=== PATIENT | male | born 1980 | race Asian ===

== ENCOUNTER 2017-10-25 14:20 | Emergency (ER) | payer BC ==
--- NOTE | 2017-10-25 14:42 | ER Document Report ---
ED Medical Screen (RME) - General Chief Complaint: Neck Pain >24hrs old Stated Complaint: NECK SWELLING, PAIN Time Seen by Provider: 10/25/17 14:38 Mode of Arrival: Ambulatory Information source: Patient TRAVEL OUTSIDE OF THE [place] IN LAST 30 DAYS: No - HPI Patient complains to provider of: neck pain, swelling Onset: Other - pt. has had swollen area in R neck for the past 3 days -- thinks it may be a swollen lymph node. Has had recentt URI - Related Data Allergies/Adverse Reactions: No Known Allergies Allergy (Verified 04/01/15 16:43) Past Medical History - Social History Frequency of alcohol use: Social - Past Medical History Cardiac Medical History: Reports: Hx Hypertension Pulmonary Medical History: Reports: Hx Bronchitis, Hx Pneumonia Renal/ Medical History: Denies: Hx Peritoneal Dialysis - Immunizations Hx Diphtheria, Pertussis, Tetanus Vaccination: No Physical Exam - Vital signs Vitals: Temp Pulse Resp BP Pulse Ox 98.9 F 125 H 16 159/97 H 97 10/25/17 14:27 10/25/17 14:10/25/17 14:27 10/25/17 14:27 10/25/17 14:27 Course - Vital Signs Vital signs: Temp Pulse Resp BP Pulse Ox 98.9 F 125 H 16 159/97 H 97 10/25/17 14:27 10/25/17 14:27 10/25/17 14:27 10/25/17 14:27 10/25/17 14:27
[2017-10-25 15:29] LABS: ABSOLUTE BASOPHILS # (AUTO) 0.1 10^3/uL (0.0-0.2); ABSOLUTE EOSINOPHILS # (AUTO) 0.1 10^3/uL (0.0-0.6); ABSOLUTE LYMPHOCYTES (AUTO) 0.9 10^3/uL (0.5-4.7); ABSOLUTE MONOCYTES (AUTO) 1.1 10^3/uL (0.1-1.4); ABSOLUTE NEUT (AUTO) 8.6 10^3/uL (1.7-8.2); BASOPHILS % (AUTO) 0.6 % (0-2); EOSINOPHILS % (AUTO) 0.5 % (0-6); HEMATOCRIT 50.5 % (37.9-51.0); HEMOGLOBIN 18.4 g/dL (13.5-17.0); LYMPHOCYTES % (AUTO) 8.2 % (13-45); MEAN CORPUSCULAR HEMOGLOBIN 35.6 pg (27.0-33.4); MEAN CORPUSCULAR HGB CONC 36.5 g/dL (32.0-36.0); MEAN CORPUSCULAR VOLUME 98 fl (80-97); MONOCYTES % (AUTO) 9.9 % (3-13); PLATELET COUNT 229 10^3/uL (150-450); RED BLOOD COUNT 5.18 10^6/uL (4.35-5.55); RED CELL DISTRIBUTION WIDTH 12.8 % (11.5-14.0); SEGMENTED NEUTROPHILS % (AUTO) 80.8 % (42-78); TOTAL CELLS COUNTED % (AUTO) 100 %; WHITE BLOOD COUNT 10.7 10^3/uL (4.0-10.5)
[2017-10-25 15:48] LABS: ALANINE AMINOTRANSFERASE 94 U/L (21-72); ALBUMIN 4.8 g/dL (3.5-5.0); ALKALINE PHOSPHATASE 77 U/L (38-126); ANION GAP 16 (5-19); ASPARTATE AMINO TRANSFERASE 40 U/L (17-59); BILIRUBIN,DIRECT 0.4 mg/dL (0.0-0.4); BILIRUBIN,TOTAL 0.8 mg/dL (0.2-1.3); BLOOD UREA NITROGEN 8 mg/dL (7-20); CALCIUM 9.6 mg/dL (8.4-10.2); CARBON DIOXIDE 21 mmol/L (22-30); CHLORIDE 103 mmol/L (98-107); GLUCOSE 121 mg/dL (75-110); POTASSIUM 4.2 mmol/L (3.6-5.0); SODIUM 140.2 mmol/L (137-145)
[2017-10-25] MEDS ORDERED: OXYCODONE-ACETAMINOPHEN 5-325 MG TABLET PO ONE (16:08)
--- NOTE | 2017-10-25 17:18 | RADIOLOGY REPORT (SQ) ---
EXAM DESCRIPTION: CT SOFT TISSUE NECK WITH COMPLETED DATE/TIME: 10/25/2017 4:37 pm REASON FOR STUDY: swelling to right mandible area, tender lymph node COMPARISON: None. TECHNIQUE: Post IV contrasted scanning from skull base through lung apices with review of bone, soft tissue and lung windows. Reconstructed coronal and sagittal MPR images reviewed. All images stored on PACS. All CT scanners at this facility use dose modulation, iterative reconstruction, and/or weight based d osing when appropriate to reduce radiation dose to as low as reasonably achievable (ALARA). [facility]: Dose Right [facility]: CareDose [facility]: Dose Right [facility]: Teradose 4D [facility]: [employer] CONTRAST TYPE AND DOSE: contrast/concentration: Isovue 370.00 mg/ml; Total Contrast Delivered: 75.0 ml; Total Saline Delivered: 55.0 ml RENAL FUNCTION: Creatinine 0.5 RADIATION DOSE: CT Rad equipment meets quality standard of care and radiation dose reduction techniq ues were employed. CTDIvol: 16.3 mGy. DLP: 490 mGy-cm. . LIMITATIONS: None. FINDINGS: The right submandibular gland is diffusely enlarged and has surrounding inflammatory hammer e in the adjacent fat. This measures 4 x 3 cm in size. No submandibular duct stones are identified. Findings likely represent sialadenitis. Tumor could not entirely be excluded. There is an adjacent right jugulodigastric lymph node on coronal image 24, 2 x 1.5 cm in size likely reactive. Just to the right of midline along the ventral edge of the right thyroid cartilage, a 2.4 x [address] is present likely a thyroglossal duct cyst. This has a tail extending up to the hyoid bone on sag ittal image 27. There is minimal hyperdense thyroid tissue in the wall of the cyst on axial image 70 . SKULL BASE: Inferior brain parenchyma, skullbase unremarkable. MAJOR SALIVARY GLANDS: Right submandibular gland diffusely enlarged with surrounding reactive inflamm atory change likely from sialadenitis. Adjacent enlarged right jugulodigastric lymph node. Remainde r of the major salivary glands are otherwise unremarkable. LYMPHADENOPATHY: Enlarged right jugulodigastric lymph node. No diffuse cervical adenopathy MUCOSAL MASSES OR ASYMMETRY: No mucosal masses or asymmetry. LARYNX/CORDS: No abnormal findings. VASCULAR STRUCTURES: The major vessels are patent. LUNG APICES: Clear. BONES: Intact. THYROID: Normal size. No masses. PARANASAL SINUSES: Clear. OTHER: No other significant finding. 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
--- NOTE | 2017-10-25 17:51 | ER Document Report ---
ED General - General Chief Complaint: Neck Pain >24hrs old Stated Complaint: NECK SWELLING, PAIN Time Seen by Provider: 10/25/17 14:38 Mode of Arrival: Ambulatory Information source: Patient Notes: Patient is a 37-year-old male who presents to the ER today for swelling to the right lower jaw and a painful lymph node to the right of the neck. Patient states this is been going on for approximately 3 days. He denies any injury, fever, chills, history of this, drainage from anywhere, mouth pain TRAVEL OUTSIDE OF THE [place] IN LAST 30 DAYS: No - Related Data Allergies/Adverse Reactions: No Known Allergies Allergy (Verified 04/01/15 16:43) Past Medical History - General Information source: Patient - Social History Smoking Status: Current Every Day Smoker Frequency of alcohol use: Social Family History: None Patient has suicidal ideation: No Patient has homicidal ideation: No - Past Medical History Cardiac Medical History: Reports: Hx Hypertension Pulmonary Medical History: Reports: Hx Bronchitis, Hx Pneumonia Renal/ Medical History: Denies: Hx Peritoneal Dialysis - Immunizations Hx Diphtheria, Pertussis, Tetanus Vaccination: No Review of Systems - Review of Systems Constitutional: No symptoms reported EENT: See HPI Cardiovascular: No symptoms reported Respiratory: No symptoms reported Gastrointestinal: No symptoms reported Genitourinary: No symptoms reported Male Genitourinary: No symptoms reported Musculoskeletal: No symptoms reported Skin: No symptoms reported Hematologic/Lymphatic: No symptoms reported Neurological/Psychological: No symptoms reported Physical Exam - Vital signs Vitals: Temp Pulse Resp BP Pulse Ox 98.9 F 125 H 16 159/97 H 97 10/25/17 14:27 10/25/17 14:27 10/25/17 14:27 10/25/17 14:27 10/25/17 14:27 - Notes Notes: PHYSICAL EXAMINATION: GENERAL: Well-appearing and in no acute distress. HEAD: swelling to right lower mandible, Atraumatic, normocephalic. EYES: Pupils equal round and reactive to light, extraocular movements intact, sclera anicteric, conjunctiva are normal. NECK: Normal range of motion, supple with bilateral cervical lymphadenopathy, right tender LUNGS: CTAB and equal. No wheezes rales or rhonchi. HEART: Regular rate and rhythm without murmurs EXTREMITIES: Normal range of motion, no pitting edema. No cyanosis. NEUROLOGICAL: Cranial nerves grossly intact. Normal sensory/motor exams. PSYCH: Normal mood, normal affect. SKIN: Warm, Dry, normal turgor, no rashes or lesions noted Course - Re-evaluation Re-evalutation: 10/26/17 12:45 Patient is a mildly elevated white blood cell count 10.7, CAT scan of the soft tissues of the neck with IV contrast reports an enlarged submandibular gland without evidence of any stones, most consistent with sialoadenitis. Patient will be started on Keflex and advised to suck on lemon drops. Patient is afebrile here with normal vital signs. - Vital Signs Vital signs: Temp Pulse Resp BP Pulse Ox 98.9 F 113 H 20 151/94 H 97 10/25/17 18:01 10/25/17 18:01 10/25/17 18:01 10/25/17 18:01 10/25/17 18:01 - Laboratory Result Diagrams: 10/25/17 14:59 10/25/17 14:59 Laboratory results interpreted by me: 10/25/17 10/25/17 14:59 14:59 WBC 10.7 H Hgb 18.4 H MCV 98 H MCH 35.6 H MCHC 36.5 H Seg Neutrophils % 80.8 H Lymphocytes % 8.2 L Absolute Neutrophils 8.6 H Carbon Dioxide 21 L Glucose 121 H ALT 94 H Discharge - Discharge Clinical Impression: Sialadenitis Condition: Stable Disposition: HOME, SELF-CARE Additional Instructions: Return immediately for any new or worsening symptoms. Follow up with primary care provider, call tomorrow to make followup appointment. Please get some lemon cough drops/ lemon drops and suck on them, they'll help! Prescriptions: Cephalexin Monohydrate [Keflex 500 mg Capsule] 500 mg PO Q6H 10 Days capsule Forms: Return to Work
[2017-10-25] MEDS ORDERED: HYDROCODONE/ACETAMINOPHEN 5-325 MG (6 TAB/ER DISP) PO PRN (17:59)
[2017-10-25 18:06] VITALS: BP 151/94
== END 2017-10-25 18:06 | disposition home or self-care (01) ==
LOC: ER 14:20
DX: K11.20 Sialoadenitis, unspecified (principal); I10 Essential (primary) hypertension; F17.200 Nicotine dependence, unspecified, uncomplicated
CPT/HCPCS: 36415; 70491; 80053; 85025; 99284

== ENCOUNTER 2018-06-22 16:14 | Emergency (ER) | payer BC ==
[2018-06-22 16:49] LABS: ABSOLUTE LYMPHOCYTES (AUTO) 0.9 10^3/uL (0.5-4.7); ABSOLUTE MONOCYTES (AUTO) 1.1 10^3/uL (0.1-1.4); ABSOLUTE NEUT (AUTO) 6.7 10^3/uL (1.7-8.2); BASOPHILS % (AUTO) 0.5 % (0-2); EOSINOPHILS % (AUTO) 0.3 % (0-6); HEMATOCRIT 48.9 % (37.9-51.0); HEMOGLOBIN 17.5 g/dL (13.5-17.0); LYMPHOCYTES % (AUTO) 10.5 % (13-45); MEAN CORPUSCULAR HEMOGLOBIN 35.2 pg (27.0-33.4); MEAN CORPUSCULAR HGB CONC 35.8 g/dL (32.0-36.0); MEAN CORPUSCULAR VOLUME 98 fl (80-97); MONOCYTES % (AUTO) 12.1 % (3-13); PLATELET COUNT 172 10^3/uL (150-450); RED BLOOD COUNT 4.97 10^6/uL (4.35-5.55); RED CELL DISTRIBUTION WIDTH 13.1 % (11.5-14.0); SEGMENTED NEUTROPHILS % (AUTO) 76.6 % (42-78); TOTAL CELLS COUNTED % (AUTO) 100 %; WHITE BLOOD COUNT 8.7 10^3/uL (4.0-10.5)
[2018-06-22 16:59] LABS: ALANINE AMINOTRANSFERASE 190 U/L (21-72); ALKALINE PHOSPHATASE 110 U/L (38-126); ASPARTATE AMINO TRANSFERASE 179 U/L (17-59); BILIRUBIN,DIRECT 0.6 mg/dL (0.0-0.4); BILIRUBIN,TOTAL 2.1 mg/dL (0.2-1.3); BLOOD UREA NITROGEN 7 mg/dL (7-20); GLUCOSE 149 mg/dL (75-110); POTASSIUM 3.9 mmol/L (3.6-5.0); TOTAL PROTEIN 7.9 g/dL (6.3-8.2)
[2018-06-22 17:04] LABS: CARBON DIOXIDE 16 mmol/L (22-30); CHLORIDE 96 mmol/L (98-107)
[2018-06-22 17:05] LABS: ANION GAP 21 (5-19)
[2018-06-22 17:11] LABS: APPEARANCE,URINE CLOUDY; BILIRUBIN,URINE NEGATIVE (NEGATIVE); COLOR,URINE YELLOW; GLUCOSE, URINE NEGATIVE (NEGATIVE); KETONES,URINE 20 mg/dL (NEGATIVE); LEUKOCYTE ESTERASE,URINE NEGATIVE (NEGATIVE); NITRITE,URINE NEGATIVE (NEGATIVE); PROTEIN,URINE >=500 mg/dL (NEGATIVE); URINE SPECIFIC GRAVITY 1.012
[2018-06-22] MEDS ORDERED: NORMAL SALINE 1000 ML 1,000 ML IV ONE (18:47)
[2018-06-22 20:12] LABS: EOSINOPHILS % (AUTO) 0.1 % (0-6); TOTAL CELLS COUNTED % (AUTO) 100 %; WHITE BLOOD COUNT 9.1 10^3/uL (4.0-10.5)
[2018-06-22 20:32] LABS: ABSOLUTE LYMPHOCYTES (AUTO) 0.7 10^3/uL (0.5-4.7); ABSOLUTE NEUT (AUTO) 7.3 10^3/uL (1.7-8.2); BASOPHILS % (AUTO) 0.4 % (0-2); HEMATOCRIT 44.7 % (37.9-51.0); HEMOGLOBIN 16.1 g/dL (13.5-17.0); LYMPHOCYTES % (AUTO) 7.8 % (13-45); MEAN CORPUSCULAR HEMOGLOBIN 35.7 pg (27.0-33.4); MEAN CORPUSCULAR VOLUME 99 fl (80-97); PLATELET COUNT 148 10^3/uL (150-450); RED BLOOD COUNT 4.51 10^6/uL (4.35-5.55); RED CELL DISTRIBUTION WIDTH 13.1 % (11.5-14.0); SEGMENTED NEUTROPHILS % (AUTO) 80.7 % (42-78)
[2018-06-22 20:43] LABS: ALANINE AMINOTRANSFERASE 149 U/L (21-72); ALBUMIN 4.1 g/dL (3.5-5.0); ALKALINE PHOSPHATASE 80 U/L (38-126); ANION GAP 12 (5-19); ASPARTATE AMINO TRANSFERASE 140 U/L (17-59); BILIRUBIN,DIRECT 0.5 mg/dL (0.0-0.4); BILIRUBIN,TOTAL 1.7 mg/dL (0.2-1.3); BLOOD UREA NITROGEN 6 mg/dL (7-20); CALCIUM 8.7 mg/dL (8.4-10.2); CARBON DIOXIDE 22 mmol/L (22-30); CHLORIDE 101 mmol/L (98-107); GLUCOSE 79 mg/dL (75-110); POTASSIUM 3.6 mmol/L (3.6-5.0); SODIUM 134.6 mmol/L (137-145); TOTAL PROTEIN 6.8 g/dL (6.3-8.2)
[2018-06-22 20:44] LABS: ALCOHOL < 10 mg/dL (NONE DETECTED)
--- NOTE | 2018-06-22 22:00 | ER Document Report ---
ED General - General Chief Complaint: Seizure Stated Complaint: POSSIBLE SEIZURE Time Seen by Provider: 06/22/18 18:03 Mode of Arrival: Stretcher Information source: Emergency Med Personnel TRAVEL OUTSIDE OF THE [place] IN LAST 30 DAYS: No - HPI Patient complains to provider of: Seizure Onset: Other - This 38-year-old otherwise healthy man presents for an evaluation of a seizure today. He recently lost his unexpectedly in a , and since has had great stress in his life. He was at work today for the first time in 2 weeks and his boss notes that he seemed a little bit out of sorts. He has no history of seizures in the past but today said he was feeling stressed at work at which time he went to the floor, when he went to the floor he had an episode of shaking with his arms however his eyes were open and he was alert during the whole time, he did not defecate or urinate on himself. He denies any trauma previously to this has no current headache or other symptoms at this time. He does state that he has been feeling intense grief after having lost his and is still adjusting to being by himself. - Related Data Allergies/Adverse Reactions: No Known Allergies Allergy (Verified 04/01/15 16:43) Past Medical History - General Information source: Patient, Relative - Social History Smoking Status: Current Some Day Smoker Chew tobacco use (# tins/day): No Frequency of alcohol use: "couple of beers a day" Drug Abuse: None Family History: None Patient has suicidal ideation: No Patient has homicidal ideation: No - Past Medical History Cardiac Medical History: Reports: Hx Hypertension Pulmonary Medical History: Reports: Hx Bronchitis, Hx Pneumonia Renal/ Medical History: Denies: Hx Peritoneal Dialysis - Immunizations Hx Diphtheria, Pertussis, Tetanus Vaccination: No Review of Systems - Review of Systems -: Yes All other systems reviewed and negative Physical Exam - Vital signs Vitals: Pulse 128 H 06/22/18 16:25 - General General appearance: Appears well In distress: None - HEENT Head: Normocephalic Eyes: Normal Conjunctiva: Normal Cornea: Normal Extraocular movements intact: Yes Eyelashes: Normal Pupils: PERRL - Respiratory Respiratory status: No respiratory distress Chest status: Nontender Breath sounds: Normal Chest palpation: Normal - Cardiovascular Rhythm: Regular, Tachycardia Heart sounds: Normal auscultation Murmur: No - Abdominal Inspection: Normal Distension: No distension Tenderness: Nontender Organomegaly: No organomegaly - Back Back: Normal - Extremities General upper extremity: Normal inspection, Nontender, Normal strength, Normal temperature General lower extremity: Normal inspection, Nontender, Normal strength, Normal temperature - Neurological Neuro grossly intact: Yes Cognition: Normal Orientation: AAOx4 [place] Coma Scale Eye Opening: Spontaneous [place] Coma Scale Verbal: Oriented [place]ara Coma Scale Motor: Obeys Commands [place] Coma Scale Total: 15 Speech: Normal Cranial nerves: Normal Cerebellar coordination: Normal Motor strength normal: LUE, RUE, LLE, RLE 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 Today was his first day back at work at which time it happened he was conscious throughout the event and did not have any postictal period thereafter. Does have a history of hypertension in the past but no significant cardiac history and has been evaluated for this as well. On examination this patient is neurologically intact save some tachycardia he is otherwise totally benign, he is well-appearing and has no complaints at this time. We will plan for repeat of his chemistry reassessment. Examination the patient remains neurologically intact after several hours in the emergency department, he has no complaints at this time. His tachycardia has improved with gentle oral rehydration and a bolus of fluids. I spoke with him about the potential issues related to seizures including but not limited to needing to not drive and the importance of follow-up with a neurologist, I do believe that this may represent pseudoseizure as this patient did not have a postictal period is neurologically intact at this time and has no reason to have a new onset seizure at 38 however it is possible he did have a epileptic event today. He is in agreement with discharge and follow-up with the primary physician this week will defer initiation of antiepileptic as a do not have a high suspicion that this represents true epilepsy or true seizure. Patient is in agreement this plan at this time, he will be given a prescription for his antihypertensive medications which she has run out of. - Vital Signs Vital signs: Temp Pulse Resp BP Pulse Ox 98.9 F 128 H 18 134/88 H 97 06/22/18 22:01 10/22/18 16:25 06/22/18 22:01 06/22/18 22:01 06/22/18 22:01 - Laboratory Result Diagrams: 06/22/18 20:00 06/22/18 20:00 Laboratory results interpreted by me: 06/22/18 06/22/18 06/22/18 16:30 16:30 16:30 Hgb 17.5 H MCV 98 H MCH 35.2 H Plt Count Seg Neutrophils % Lymphocytes % 10.5 L Sodium 133.0 L Chloride 96 L Carbon Dioxide 16 L Anion Gap 21 H BUN Glucose 149 H Total Bilirubin 2.1 H Direct Bilirubin 0.6 H AST 179 H ALT 190 H Urine Protein >=500 H Urine Ketones 20 H Urine Blood MODERATE H Urine Urobilinogen 2.0 H 06/22/18 06/22/18 20:00 20:00 Hgb MCV 99 H MCH 35.7 H Plt Count 148 L Seg Neutrophils % 80.7 H Lymphocytes % 7.8 L Sodium 134.6 L Chloride Carbon Dioxide Anion Gap BUN 6 L Glucose Total Bilirubin 1.7 H Direct Bilirubin 0.5 H AST 140 H ALT 149 H Urine Protein Urine Ketones Urine Blood Urine Urobilinogen Discharge - Discharge Clinical Impression: Seizure, Grief Condition: Good Disposition: HOME, SELF-CARE Instructions: High Blood Pressure ([facility]), New Seizure ([facility]) Prescriptions: Bisoprolol/Hydrochlorothiazide [Ziac 5-6.25 mg Tablet] 1 each PO DAILY #20 tablet Forms: Return to Work
[2018-06-22 22:25] VITALS: BP 134/88
--- NOTE | 2018-06-22 23:17 | EKG REPORT ---
SEVERITY:- OTHERWISE NORMAL ECG - SINUS TACHYCARDIA : Confirmed by: Patrizia Rodríguez 22-Jun-2018 23:15:41
== END 2018-06-22 22:27 | disposition home or self-care (01) ==
LOC: ER 16:14
DX: R56.9 Unspecified convulsions (principal); F43.21 Adjustment disorder with depressed mood; F17.200 Nicotine dependence, unspecified, uncomplicated; I10 Essential (primary) hypertension
CPT/HCPCS: 93005; 99285; 96360; 96361; 36415; 80307; 85025; 80053; 81001; 93010; J7030

== ENCOUNTER 2018-10-01 11:01 | Inpatient (IN) | payer BC ==
[2018-10-01] MEDS ORDERED: LORAZEPAM INJ 2 MG/1 ML VIAL IV ONE ×3 (11:04→12:59)
--- NOTE | 2018-10-01 11:07 | ER Document Report ---
ED General - General Stated Complaint: POSSIBLE SEIZURE Time Seen by Provider: 10/01/18 11:04 Cannot obtain history due to: Unstable vital signs Notes: 38-year-old male presents with seizure, witnessed, fell to the ground and had shaking movements followed by tachycardia. EMS said that he was "not postictal" but he was tachycardic at the scene. He is been having some cough and low-grade fevers in the last couple of days. He drinks daily. He says he has been cutting down but denies feeling anxious or nauseous in the setting of decreased drinking. He had one prior seizure in June and from what I can see in the ED had a negative EKG and workup although I do not see that he had a head CT. He denies prior alcohol withdrawal but is told the nurse that after his that he began drinking daily heavily prior to his last seizure. TRAVEL OUTSIDE OF THE [place] IN LAST 30 DAYS: No - Related Data Allergies/Adverse Reactions: No Known Allergies Allergy (Verified 10/01/18 12:32) Past Medical History - Social History Smoking Status: Unknown if Ever Smoked Frequency of alcohol use: Heavy Family History: None - Past Medical History Cardiac Medical History: Reports: Hx Hypertension Pulmonary Medical History: Reports: Hx Bronchitis, Hx Pneumonia Renal/ Medical History: Denies: Hx Peritoneal Dialysis - Immunizations Hx Diphtheria, Pertussis, Tetanus Vaccination: No Review of Systems - Review of Systems Notes: REVIEW OF SYSTEMS GEN: Denies fever, chills, weight loss ENT: Denies sore throat, nasal discharge, ear pain EYES: Denies blurry vision, eye pain, discharge CV: Denies chest pain, palpitations, edema RESP: Cough and upper respiratory symptoms GI: Denies abdominal pain, nausea, vomiting, diarrhea MSK: Denies joint pain/swelling, edema, SKIN: Denies rash, skin lesions LYMPH: Denies swollen glands/lymph nodes NEURO:/Loss of consciousness, denies headache, focal weakness or numbness, dizziness PSYCH: Denies depression, suicidal or homicidal ideation PHYSICAL EXAMINATION General: Diaphoretic Head: Atraumatic, normocephalic ENT: Mouth normal, oropharynx moist, no exudates or tonsillar enlargement Eyes: Conjunctiva normal, pupils equal, lids normal Neck: No JVD, supple, no guarding CVS: Cardiac, regular rhythm, no murmurs Resp: No resp distress, equal and normal breath sounds bilaterally GI: Nondistended, soft, no tenderness to palpation, no rebound or guarding Ext: No deformities, no edema, normal range of motion in upper and lower ext Back: No CVA or midline TTP Skin: No rash, warm Lymphatic: No lymphadeopathy noted Neuro: No clonus. Positive tongue fasciculations. Normal cranial nerves. Physical Exam - Vital signs Vitals: Resp Pulse Ox 19 95 10/01/18 11:09 10/01/18 11:09 Course - Re-evaluation Re-evalutation: 10/01/18 11:21 Patient with heavy alcohol intake presents with his second seizure, tachycardic diaphoretic with tongue fasciculations. Alcohol withdrawal wrist ideation versus both. No fever. Doubt flu or meningitis because he has no meningismus. His neurologic exam is normal except for some mild clonus in the physical elation. Will check head CT since this is not been done, check for R normality's hydrate and give empiric Ativan. 10/01/18 12:08 Reassessed at 12:[address] head looks negative but is formally not read yet. Labs are still pending. After 1 of Ativan the patient is still quite tremulous worse with intention tachycardic to 135. We will give him 2 more of Ativan and continue his hydration. He now admits to not having any ringing in 2 days previously heavy. 10/01/18 12:54 Reassessed at 12:50 PM. Still quite tremorous with a heart rate of 1 3:42 of Ativan in the first hour. Than admit. Mild hyponatremia, no other severe R normality's. Discussed with hospitalist for admission. - Vital Signs Vital signs: Temp Pulse Resp BP Pulse Ox 99.0 F 18 153/104 H 95 10/01/18 11:54 10/01/18 11:13 10/01/18 11:13 10/01/18 11:13 - Laboratory Result Diagrams: 10/01/18 11:09 10/01/18 12:01 Laboratory results interpreted by me: 10/01/18 10/01/18 11:09 12:01 MCV 99 H MCH 35.7 H Plt Count 142 L Seg Neuts % (Manual) 82 H Band Neutrophils % 2 L Lymphocytes % (Manual) 1 L Abs Lymphs (Manual) 0.2 L Sodium 133.4 L Chloride 97 L Creatinine 0.45 L Glucose 118 H AST 146 H ALT 222 H - Diagnostic Test Radiology reviewed: Image reviewed, Reports reviewed - EKG Interpretation by Me EKG shows normal: Sinus rhythm Rate: Normal, Tachycardia Rhythm: NSR Critical Care Note - Critical Care Note Total time excluding time spent on procedures (mins): 32 Comments: The above patient is critically ill. Not including procedures, but including direct re-evaluations, speaking with patient and/or consultants, interpreting results, and documenting, I spent the total amount of minute listed listed above on critical care time Discharge - Discharge Clinical Impression: Alcohol withdrawal seizure Qualifiers: Complication of substance-induced condition: uncomplicated Qualified Code(s): F10.230 - Alcohol dependence with withdrawal, uncomplicated Condition: Critical Disposition: ADMITTED INPATIENT Admitting Provider: Hospitalist Unit Admitted: [facility]
[2018-10-01 11:36] LABS: HEMATOCRIT 46.1 % (37.9-51.0); HEMOGLOBIN 16.5 g/dL (13.5-17.0); MEAN CORPUSCULAR HEMOGLOBIN 35.7 pg (27.0-33.4); MEAN CORPUSCULAR HGB CONC 35.9 g/dL (32.0-36.0); MEAN CORPUSCULAR VOLUME 99 fl (80-97); PLATELET COUNT 142 10^3/uL (150-450); RED BLOOD COUNT 4.63 10^6/uL (4.35-5.55); RED CELL DISTRIBUTION WIDTH 12.7 % (11.5-14.0)
[2018-10-01] MEDS ORDERED: THIAMINE HCL 100 MG TABLET PO ONE (12:08)
--- NOTE | 2018-10-01 12:22 | RADIOLOGY REPORT (SQ) ---
EXAM DESCRIPTION: CT HEAD WITHOUT COMPLETED DATE/TIME: 10/01/2018 11:57 am REASON FOR STUDY: sz Seizure COMPARISON: None. TECHNIQUE: Axial images acquired through the brain without intravenous contrast. Images reviewed wi th bone, brain and subdural windows. Additional sagittal and coronal reconstructions were generated. Images stored on PACS. All CT scanners at this facility use dose modulation, iterative reconstruction, and/or weight based d osing when appropriate to reduce radiation dose to as low as reasonably achievable (ALARA). [facility]: Dose Right [facility]: CareDose [facility]: Dose Right [facility]: Teradose 4D [facility]: [employer] RADIATION DOSE: CT Rad equipment meets quality standard of care and radiation dose reduction techniq ues were employed. CTDIvol: 53.2 mGy. DLP: 1017 mGy-cm. mGy. LIMITATIONS: None. FINDINGS: VENTRICLES: Normal size and contour. CEREBRUM: No masses. No hemorrhage. No midline shift. No evidence for acute infarction. Normal gra y/white matter differentiation. No areas of low density in the white matter. CEREBELLUM: No masses. No hemorrhage. No alteration of density. No evidence for acute infarction. EXTRAAXIAL SPACES: No fluid collections. No masses. ORBITS AND GLOBE: No intra- or extraconal masses. Normal contour of globe without masses. CALVARIUM: No fracture. PARANASAL SINUSES: Air-fluid level in the sphenoid sinus from sinusitis SOFT TISSUES: No mass or hematoma. OTHER: No other significant finding. IMPRESSION: Air-fluid level in the sphenoid sinus from sinusitis. Otherwise unremarkable CT brain without IV contrast EVIDENCE OF ACUTE STROKE: NO. COMMENT: Quality ID # [id number]: Final reports with documentation of one or more dose reduction techniques (e.g., Automated exposure control, adjustment of the mA and/or kV according to patient size, use of iterative reconstruction technique) TECHNICAL DOCUMENTATION: JOB ID: [id number] [email or web address]- All Rights Reserved Reading location - IP/workstation name: [email or web address]
[2018-10-01 12:37] LABS: ALANINE AMINOTRANSFERASE 222 U/L (21-72); ALBUMIN 4.3 g/dL (3.5-5.0); ALKALINE PHOSPHATASE 90 U/L (38-126); ANION GAP 9 (5-19); ASPARTATE AMINO TRANSFERASE 146 U/L (17-59); BILIRUBIN,DIRECT 0.2 mg/dL (0.0-0.4); BLOOD UREA NITROGEN 7 mg/dL (7-20); CALCIUM 8.9 mg/dL (8.4-10.2); CARBON DIOXIDE 27 mmol/L (22-30); CHLORIDE 97 mmol/L (98-107); GLUCOSE 118 mg/dL (75-110); POTASSIUM 3.6 mmol/L (3.6-5.0); SODIUM 133.4 mmol/L (137-145); TOTAL PROTEIN 6.5 g/dL (6.3-8.2)
[2018-10-01 12:38] LABS: ABSOLUTE LYMPHOCYTES# (MANUAL) 0.2 10^3/uL (0.5-4.7); ABSOLUTE NEUTROPHILS# (MANUAL) 6.7 10^3/uL (1.7-8.2); BAND NEUTROPHILS % (MANUAL) 2 % (3-5); BASOPHILS % (MANUAL) 0 % (0-2); EOSINOPHILS % (MANUAL) 0 % (0-6); LYMPHOCYTES % (MANUAL) 1 % (13-45); MONOCYTES % (MANUAL) 13 % (3-13); SEGMENTED NEUTROPHILS % (MAN) 82 % (42-78); TOTAL CELLS COUNTED 100
[2018-10-01 12:39] LABS: PLATELET COMMENT DECREASED; TOXIC VACUOLATION PRESENT
[2018-10-01] MEDS ORDERED: NORMAL SALINE 1000 ML 1,000 ML IV PRN ×2 (12:59→13:01)
[2018-10-01] MEDS ORDERED: ONDANSETRON HCL INJ/PF 4 MG/2 ML SDV IV PRN ×2 (13:01→13:30)
[2018-10-01] MEDS ORDERED: ACETAMINOPHEN 325 MG TABLET PO PRN (13:01)
--- NOTE | 2018-10-01 13:15 | EKG REPORT ---
SEVERITY:- OTHERWISE NORMAL ECG - SINUS TACHYCARDIA : Confirmed by: Dusty Bojorquez MD 01-Oct-2018 13:15:07
[2018-10-01] MEDS: NICOTINE 21 MG/24 HR PATCH.TD24 TD SCH (14:52)
[2018-10-01 15:20] LABS: URINE AMPHETAMINES SCREEN NEGATIVE; URINE BARBITURATES SCREEN NEGATIVE; URINE BENZODIAZEPINES SCREEN NEGATIVE; URINE COCAINE SCREEN NEGATIVE; URINE MARIJUANA (THC) SCREEN NEGATIVE; URINE METHADONE SCREEN NEGATIVE; URINE PHENCYCLIDINE SCREEN NEGATIVE
[2018-10-01] MEDS ORDERED: METOPROLOL TARTRATE PF/INJ 5 MG/5 ML SDV IV PRN (15:22)
--- NOTE | 2018-10-01 15:22 | PDOC H&P ---
History of Present Illness Admission Date/PCP: 10/01/18 13:11 Patient complains of: Possible seizure History of Present Illness: VALERIA PEOPLES is a 38 year old male past medical history of essential hypertension, tobacco abuse and alcohol abuse. He presents to [facility] emergency room via EMS after a possible witnessed seizure. Patient was noted to fall to the ground and then have seizure-like movements witnessed by his brother. He had no loss of continence. He was noted to be quite tachycardic by EMS when they arrived. He had no complaints of overt injuries. He has had prior history of possible seizure related to alcohol use last June after his 's . According to the patient and his brother, he began drinking heavily after his in June. He states she of sepsis. He states he drinks mostly beer, 3-5 a day. He states he is not drinking in the last 2 days. He has been trying to quit. He is tremulous at the present time. He has been given IV Ativan by the emergency room provider. He underwent CT of his head which showed no abnormalities. He denies any complaints of pain at the present time. Past Medical History Cardiac Medical History: Reports: Hypertension Pulmonary Medical History: Reports: Bronchitis, Pneumonia Neurological Medical History: Reports: None Endocrine Medical History: Reports: None Renal/ Medical History: Reports: None Malignancy Medical History: Reports: None GI Medical History: Reports: None Musculoskeltal Medical History: Reports: None Skin Medical History: Reports: None Psychiatric Medical History: Reports: Alcohol Dependency, Depression, Tobacco Dependency Traumatic Medical History: Reports: None Infectious Medical History: Reports: None Past Surgical History Past Surgical History: Reports: None Social History Information Source: Patient Lives with: Family Smoking Status: Current Every Day Smoker Cigarettes Packs Per Day: 1 Number of Years Smokin Last Time Smoked: Today Frequency of Alcohol Use: Heavy Amount of Alcoholic Beverages Per Day: 3-5 beers Last Alcohol Use: 09/29/18 Hx Recreational Drug Use: No Hx Prescription Drug Abuse: No - Advance Directive Resuscitation Status: Full Code Surrogate healthcare decision maker:: Father Family History Family History: Hypertension Parental Family History Reviewed: Yes Children Family History Reviewed: NA Sibling(s) Family History Reviewed.: Yes Medication/Allergy Home Medications: No Home Medications 10/01/18 Allergies/Adverse Reactions: No Known Allergies Allergy (Verified 10/01/18 12:32) Physical Exam Vital Signs: Temp Pulse Resp BP Pulse Ox 99.4 F 18 153/104 H 95 10/01/18 12:56 10/01/18 11:13 10/01/18 11:13 10/01/18 11:13 Intake & Output 09/30/18 10/01/18 10/02/18 06:59 06:59 06:59 Weight 80.739 kg General appearance: PRESENT: no acute distress, well-developed, well-nourished, other - diaphoretic Head exam: PRESENT: atraumatic, normocephalic Eye exam: PRESENT: conjunctiva pink, EOMI, PERRLA. ABSENT: scleral icterus Ear exam: PRESENT: normal external ear exam Mouth exam: PRESENT: moist, tongue midline Neck exam: ABSENT: carotid bruit, JVD, lymphadenopathy, thyromegaly Respiratory exam: PRESENT: clear to auscultation humberto. ABSENT: rales, rhonchi, wheezes Cardiovascular exam: PRESENT: RRR, +S1, +S2, tachycardia Pulses: PRESENT: normal dorsalis pedis pul Vascular exam: PRESENT: normal capillary refill GI/Abdominal exam: PRESENT: normal bowel sounds, soft. ABSENT: distended, gua rding, mass, organolmegaly, rebound, tenderness Rectal exam: PRESENT: deferred Extremities exam: PRESENT: full ROM. ABSENT: calf tenderness, clubbing, pedal edema Musculoskeletal exam: PRESENT: ambulatory, full ROM, normal inspection Neurological exam: PRESENT: alert, awake, oriented to person, oriented to place, oriented to time, oriented to situation, CN II-XII grossly intact, other - tremulous. ABSENT: motor sensory deficit Psychiatric exam: PRESENT: anxious Skin exam: PRESENT: dry, intact, warm. ABSENT: cyanosis, rash Results Laboratory Results: 10/01/18 11:09 10/01/18 12:01 10/01/18 10/01/18 10/01/18 11:09 11:09 12:01 WBC 8.0 RBC 4.63 Hgb 16.5 Hct 46.1 MCV 99 H MCH 35.7 H MCHC 35.9 RDW 12.7 Plt Count 142 L Seg Neutrophils % Not Reportable Lymphocytes % Not Reportable Monocytes % Not Reportable Eosinophils % Not Reportable Basophils % Not Reportable Absolute Neutrophils Not Reportable Absolute Lymphocytes Not Reportable Absolute Monocytes Not Reportable Absolute Eosinophils Not Reportable Absolute Basophils Not Reportable Sodium Cancelled 133.4 L Potassium Cancelled 3.6 Chloride Cancelled 97 L Carbon Dioxide Cancelled 27 Anion Gap Cancelled 9 BUN Cancelled 7 Creatinine Cancelled 0.45 L Est GFR ( Amer) Cancelled > 60 Est GFR (Non-Af Amer) Cancelled > 60 Glucose Cancelled 118 H Calcium Cancelled 8.9 Total Bilirubin Cancelled 1.0 AST Cancelled 146 H ALT Cancelled 222 H Alkaline Phosphatase Cancelled 90 Total Protein Cancelled 6.5 Albumin Cancelled 4.3 Impressions: Head CT 10/01/18 11:05 IMPRESSION: Air-fluid level in the sphenoid sinus from sinusitis. Otherwise unremarkable CT brain without IV contrast EVIDENCE OF ACUTE STROKE: NO. Assessment & Plan - Diagnosis (1) Alcohol withdrawal syndrome Qualifiers: Complication of substance-induced condition: uncomplicated Qualified Code(s): F10.230 - Alcohol dependence with withdrawal, uncomplicated Is this a current diagnosis for this admission?: Yes Plan: CIWA protocol is in place. We will start him on tapering dose of oral Ativan per protocol with as needed IV Ativan as needed. He will be given a banana bag every day. Will hydrate with IV fluids as well. Seizure precautions will be in place. We have asked behavioral science and Dr. Frank Sesay, psychologist, to see the patient in consult. He is agreeable to the plan. (2) Essential hypertension Is this a current diagnosis for this admission?: Yes Plan: He states he has not been taking any blood pressure medication he did not think he needed it because his blood pressure was good while he was taking it. We will add a as needed Lopressor order for blood pressure greater than 180 systolic (3) Tobacco abuse Is this a current diagnosis for this admission?: Yes Plan: He was counseled. He does not think he can quit smoking at the present time would like to focus on drinking. He is agreeable to nicotine patch while he is here. (4) Depression Is this a current diagnosis for this admission?: Yes Plan: States he has been extremely depressed since his . He denies any suicidal ideations or plans. He states he has used alcohol to try and cope with his emotional pain. Dr. Sesay has been consulted for her input. - Time Time Spent: 50 to 70 Minutes Critical Time spent with patient: 25-34 minutes Smoking Cessation Education: 3 to 10 minutes Medications reviewed and adjusted accordingly: Yes Anticipated discharge: Home - Inpatient Certification Based on my medical assessment, after consideration of the patient's comorbidities, presenting symptoms, or acuity I expect that the services needed warrant INPATIENT care.: Yes I certify that my determination is in accordance with my understanding of Medicare's requirements for reasonable and necessary INPATIENT services [42 CFR 412.3e].: Yes Medical Necessity: Need Close Monitoring Due to Risk of Patient Decompensation, Need For IV Fluids, Need for Neurological Checks, Risk of Complication if Not Cared For in Hospital
[2018-10-01] MEDS ORDERED: DIAZEPAM 5 MG TABLET PO SCH (18:00)
[2018-10-01] MEDS: NORMAL SALINE 1000 ML 1,000 ML with POTASSIUM CHLORIDE 20 MEQ, MAGNESIUM SULFATE 8 MEQ,... IV SCH ×5 (18:28)
[2018-10-01] MEDS: LORAZEPAM INJ 2 MG/1 ML VIAL IV PRN (18:28)
[2018-10-01] MEDS: FAMOTIDINE 20 MG TABLET PO SCH (22:00)
[2018-10-02 06:30] LABS: ABSOLUTE EOSINOPHILS # (AUTO) 0.1 10^3/uL (0.0-0.6); ABSOLUTE LYMPHOCYTES (AUTO) 0.9 10^3/uL (0.5-4.7); ABSOLUTE MONOCYTES (AUTO) 0.9 10^3/uL (0.1-1.4); ABSOLUTE NEUT (AUTO) 3.8 10^3/uL (1.7-8.2); BASOPHILS % (AUTO) 0.9 % (0-2); EOSINOPHILS % (AUTO) 1.5 % (0-6); HEMATOCRIT 45.4 % (37.9-51.0); HEMOGLOBIN 16.4 g/dL (13.5-17.0); LYMPHOCYTES % (AUTO) 15.1 % (13-45); MEAN CORPUSCULAR HGB CONC 36.2 g/dL (32.0-36.0); MEAN CORPUSCULAR VOLUME 100 fl (80-97); MONOCYTES % (AUTO) 15.4 % (3-13); PLATELET COUNT 104 10^3/uL (150-450); RED BLOOD COUNT 4.56 10^6/uL (4.35-5.55); RED CELL DISTRIBUTION WIDTH 12.6 % (11.5-14.0); SEGMENTED NEUTROPHILS % (AUTO) 67.1 % (42-78); TOTAL CELLS COUNTED % (AUTO) 100 %; WHITE BLOOD COUNT 5.7 10^3/uL (4.0-10.5)
[2018-10-02] MEDS: LORAZEPAM INJ 2 MG/1 ML VIAL IV PRN ×4 (06:30→23:30)
[2018-10-02 06:50] LABS: ALANINE AMINOTRANSFERASE 199 U/L (21-72); ALBUMIN 4.4 g/dL (3.5-5.0); ALKALINE PHOSPHATASE 69 U/L (38-126); ANION GAP 13 (5-19); ASPARTATE AMINO TRANSFERASE 143 U/L (17-59); BILIRUBIN,DIRECT 0.4 mg/dL (0.0-0.4); BILIRUBIN,TOTAL 1.3 mg/dL (0.2-1.3); BLOOD UREA NITROGEN 4 mg/dL (7-20); CALCIUM 8.9 mg/dL (8.4-10.2); CARBON DIOXIDE 24 mmol/L (22-30); CHLORIDE 102 mmol/L (98-107); GLUCOSE 79 mg/dL (75-110); LIPASE 270.5 U/L (23-300); POTASSIUM 3.6 mmol/L (3.6-5.0); SODIUM 138.6 mmol/L (137-145); TOTAL PROTEIN 6.9 g/dL (6.3-8.2)
[2018-10-02] MEDS: NICOTINE 21 MG/24 HR PATCH.TD24 TD SCH (09:05)
[2018-10-02] MEDS: FAMOTIDINE 20 MG TABLET PO SCH ×2 (09:05→21:05)
[2018-10-02] MEDS ORDERED: ENOXAPARIN SODIUM INJ 40 MG/0.4 ML DISP.SYRIN SUBCUT SCH (10:00)
[2018-10-02] MEDS: NORMAL SALINE 1000 ML 1,000 ML IV PRN (12:01)
[2018-10-02] MEDS: ERYTHROMYCIN 0.5% OPH OINTMENT 3.5 GM TUBE OU SCH ×3 (14:34→21:15)
--- NOTE | 2018-10-02 16:07 | PDOC PROGRESS REPORT ---
Subjective Progress Note for:: 10/02/18 Subjective:: Mr. Finn is a 38 yr old male with a PMH of hypertension, tobacco and alcohol abuse who was admitted for alcohol withdrawal seizure. He was started on CIWA protocol. No recurrrence of seizure since admission. He does complain of nasal congestion, tearing and conjunctiva erythema. Denies chest pain or SOB. No fever or chills. Reason For Visit: ALCOHOL WITHDRAWL SYNDROME Physical Exam Vital Signs: Temp Pulse Resp BP Pulse Ox 99.7 F 111 H 20 135/93 H 100 10/02/18 15:26 10/02/18 15:26 10/02/18 15:26 10/02/18 15:26 10/02/18 15:26 Intake & Output 10/01/18 10/02/18 10/03/18 06:59 06:59 06:59 Intake Total 2239 200 Balance 2239 200 Weight 179 lb 14.355 oz General appearance: PRESENT: no acute distress, well-developed, well-nourished Head exam: PRESENT: atraumatic, normocephalic Eye exam: PRESENT: conjunctival injection Ear exam: PRESENT: normal external ear exam Mouth exam: PRESENT: moist, tongue midline Neck exam: ABSENT: carotid bruit, JVD, lymphadenopathy, thyromegaly Respiratory exam: PRESENT: clear to auscultation humberto. ABSENT: rales, rhonchi, wheezes Cardiovascular exam: PRESENT: RRR. ABSENT: diastolic murmur, rubs, systolic murmur Pulses: PRESENT: normal dorsalis pedis pul GI/Abdominal exam: PRESENT: normal bowel sounds, soft. ABSENT: distended, guarding, mass, organolmegaly, rebound, tenderness Rectal exam: PRESENT: deferred Extremities exam: PRESENT: full ROM. ABSENT: calf tenderness, clubbing, pedal edema Neurological exam: PRESENT: alert, awake, oriented to person, oriented to place, oriented to time, oriented to situation, CN II-XII grossly intact. ABSENT: motor sensory deficit Results Laboratory Results: 10/02/18 06:19 10/02/18 06:19 10/02/18 10/02/18 10/02/18 06:19 06:19 06:19 WBC 5.7 RBC 4.56 Hgb 16.4 Hct 45.4 MCV 100 H MCH 36.0 H MCHC 36.2 H RDW 12.6 Plt Count 104 L Seg Neutrophils % 67.1 Lymphocytes % 15.1 Monocytes % 15.4 H Eosinophils % 1.5 Basophils % 0.9 Absolute Neutrophils 3.8 Absolute Lymphocytes 0.9 Absolute Monocytes 0.9 Absolute Eosinophils 0.1 Absolute Basophils 0.0 Sodium 138.6 Potassium 3.6 Chloride 102 Carbon Dioxide 24 Anion Gap 13 BUN 4 L Creatinine 0.43 L Est GFR ( Amer) > 60 Est GFR (Non-Af Amer) > 60 Glucose 79 Calcium 8.9 Magnesium 2.1 Total Bilirubin 1.3 AST 143 H ALT 199 H Alkaline Phosphatase 69 Ammonia 17.1 Total Protein 6.9 Albumin 4.4 Lipase 270.5 Impressions: Head CT 10/01/18 11:05 IMPRESSION: Air-fluid level in the sphenoid sinus from sinusitis. Otherwise unremarkable CT brain without IV contrast EVIDENCE OF ACUTE STROKE: NO. Assessment & Plan - Diagnosis (1) Alcohol withdrawal syndrome Qualifiers: Complication of substance-induced condition: uncomplicated Qualified Code(s): F10.230 - Alcohol dependence with withdrawal, uncomplicated Is this a current diagnosis for this admission?: Yes Plan: Continue Ativan prn. Continue banana bag. He has poor appetite and appears dry this morning. Will add IV fluids. (2) Alcohol withdrawal seizure Qualifiers: Complication of substance-induced condition: uncomplicated Qualified Code(s): F10.230 - Alcohol dependence with withdrawal, uncomplicated Is this a current diagnosis for this admission?: Yes Plan: No recurrence of seizure since admission. Ativan prn. (3) Conjunctivitis Is this a current diagnosis for this admission?: Yes Plan: More likely viral with clear watery eye discharge, bilateral along with nasal congestion. (4) Alcohol abuse Is this a current diagnosis for this admission?: Yes Plan: Advised on alcohol cessation. - Time Time Spent with patient: 25-34 minutes
[2018-10-02] MEDS: NORMAL SALINE 1000 ML 1,000 ML with POTASSIUM CHLORIDE 20 MEQ, MAGNESIUM SULFATE 8 MEQ,... IV SCH ×5 (17:05)
[2018-10-03] MEDS: NORMAL SALINE 1000 ML 1,000 ML IV PRN (01:49)
[2018-10-03] MEDS: LORAZEPAM INJ 2 MG/1 ML VIAL IV PRN (02:29)
[2018-10-03] MEDS: NICOTINE 21 MG/24 HR PATCH.TD24 TD SCH (09:49)
[2018-10-03] MEDS: FAMOTIDINE 20 MG TABLET PO SCH (09:49)
[2018-10-03] MEDS: ERYTHROMYCIN 0.5% OPH OINTMENT 3.5 GM TUBE OU SCH (09:50)
[2018-10-03] MEDS ORDERED: FONDAPARINUX SODIUM INJ 2.5 MG/0.5 ML DISP.SYRIN SUBCUT SCH (10:00)
[2018-10-03 12:13] VITALS: BP 139/93
--- NOTE | 2018-10-03 14:41 | PSYCHOLOGICAL NOTE ---
Psych Note - Psych Note Date seen by psych provider: 10/01/18 Time seen by psych provider: 15:00 Psych Note: Reason for Consult: Alcohol abuse/ depression VALERIA PEOPLES is a 38 year old male past medical history of essential hypertension, tobacco abuse and alcohol abuse. He presents to [facility]'s emergency room via EMS after a possible witnessed seizure. Patient reports that he has not feeling well currently after having a seizure. He con firms that this happened to him before however it has been a while. He reports that he drinks approximately 2-3 beers a day which has been consistent for the last 5-6 years. He confirms that his in May from sepsis and admits to "possible slight increase" in beer intake from it. He denies thoughts of wanting to harm himself or others and reports that he talks his family and friends when feeling sad about his . Patient is alert and orientated to person, place, time and circumstance. Patient currently in medical crisis with flat affect. Patient denies suicidal and homicidal ideation. Delusions are absent behaviors congruent with an intact reality based presentation i.e. organized and linear thought process. Eye contact was well-maintained. Conversational speech was overall within normal rate, tone and prosody. Clinician notes patient needed to stop speaking on multiple occasions because of medical. Intellectual abilities appear to be within the average range. Attention and concentration are fair. Insight, judgment, impulse control are fair. No medication recommendations at this time Bereavement Unspecified alcohol use disorder Impression\\plan: Patient is cleared from acute psychiatric services. Patient does not meet IVC criteria per [place] GS 120 2C. Patient reports sadness from when his back in May. He states that she from sepsis. He continued to report that he has had it is slight increase in alcohol intake however denies assistance in sobriety. Patient reports that he will look into it after discharge on his own. Patient is able to identify a support network of family and friends to deal with his grief. He denies thoughts of wanting to harm himself or others. Patient is highly encouraged to follow-up with outpatient substance abuse and grief counseling. Dr. Sesay was consulted and the care management this patient; attending physicians in agreement with recommendations and disposition.
--- NOTE | 2018-10-03 15:36 | PDOC DISCHARGE SUMMARY ---
General - Admit/Disc Date/PCP Admission Date/Primary Care Provider: 10/01/18 13:11 Discharge Date: 10/03/18 - Discharge Diagnosis (1) Alcohol withdrawal syndrome Is this a current diagnosis for this admission?: Yes (2) Alcohol withdrawal seizure Is this a current diagnosis for this admission?: Yes (3) Conjunctivitis Is this a current diagnosis for this admission?: Yes (4) Alcohol abuse Is this a current diagnosis for this admission?: Yes - Additional Information Resuscitation Status: Full Code Discharge Diet: Cardiac Discharge Activity: Activity As Tolerated Prescriptions: Azithromycin 500 mg PO DAILY #3 tablet Erythromycin Base [E-Mycin 0.5% Oph Ointment 3.5 gm] 1 applic OU QID 5 Days #1 tube Melatonin 10 mg PO QHS PRN #30 tablet PRN Reason: for insomnia Home Medications: Azithromycin 500 mg PO DAILY #3 tablet 10/03/18 Erythromycin Base [E-Mycin 0.5% Oph Ointment 3.5 gm] 1 applic OU QID 5 Days #1 tube 10/03/18 Melatonin 10 mg PO QHS PRN #30 tablet 10/03/18 History of Present Illness History of Present Illness: Admitting hospitalist's H&P: VALERIA FINN is a 38 year old male past medical history of essential hypertension, tobacco abuse and alcohol abuse. He presents to [facility]'s emergency room via EMS after a possible witnessed seizure. Patient was noted to fall to the ground and then have seizure-like movements witnessed by his brother. He had no loss of continence. He was noted to be quite tachycardic by EMS when they arrived. He had no complaints of overt injuries. He has had prior history of possible seizure related to alcohol use last June after his 's . According to the patient and his brother, he began drinking heavily after his in June. He states she of sepsis. He states he drinks mostly beer, 3-5 a day. He states he is not drinking in the last 2 days. He has been trying to quit. He is tremulous at the present time. He has been given IV Ativan by the emergency room provider. He underwent CT of his head which showed no abnormalities. He denies any complaints of pain at the present time. Hospital Course Hospital Course: Mr. Finn is a 38 year old male with a PMH of HTN, alcohol abuse and history of alcohol withdrawal who was admitted for alcohol withdrawal seizure. He had a witnessed seizure 2 days after stopping alcohol drinking. He was started in CIWA protocol, IV fluids and banana bag. He did not have any seizure like activity since presentation. He was also evaluated by psych. He did also complain of conjunctival redness, watery eyes and minimally productive cough. He was given erythromycin ointment which significantly improved his eye symptoms. He clinically improved with no acute issues. He was counseled about alcohol cessation. Physical Exam Vital Signs: Temp Pulse Resp BP Pulse Ox 98.1 F 89 12 139/93 H 99 10/03/18 12:12 10/03/18 12:12 10/03/18 12:12 10/03/18 12:12 10/03/18 12:12 Intake & Output 10/02/18 10/03/18 10/04/18 06:59 06:59 06:59 Intake Total 2239 4349 1591 Balance 2239 4349 1591 Weight 179 lb 14.355 oz 179 lb 3.773 oz General appearance: PRESENT: no acute distress, well-developed, well-nourished Head exam: PRESENT: atraumatic, normocephalic Eye exam: PRESENT: conjunctiva pink, EOMI, PERRLA. ABSENT: scleral icterus Ear exam: PRESENT: normal external ear exam Mouth exam: PRESENT: moist, tongue midline Neck exam: ABSENT: carotid bruit, JVD, lymphadenopathy, thyromegaly Respiratory exam: PRESENT: clear to auscultation humberto. ABSENT: rales, rhonchi, wheezes Cardiovascular exam: PRESENT: RRR. ABSENT: diastolic murmur, rubs, systolic murmur Pulses: PRESENT: normal dorsalis pedis pul GI/Abdominal exam: PRESENT: normal bowel sounds, soft. ABSENT: distended, guarding, mass, organolmegaly, rebound, tenderness Rectal exam: PRESENT: deferred Extremities exam: PRESENT: full ROM. ABSENT: calf tenderness, clubbing, pedal edema Neurological exam: PRESENT: alert, awake, oriented to person, oriented to place, oriented to time, oriented to situation, CN II-XII grossly intact. ABSENT: motor sensory deficit Results Laboratory Results: 10/02/18 06:19 10/02/18 06:19 Impressions: Head CT 10/01/18 11:05 IMPRESSION: Air-fluid level in the sphenoid sinus from sinusitis. Otherwise unremarkable CT brain without IV contrast EVIDENCE OF ACUTE STROKE: NO. Qualifiers - * PATIENT BEING DISCHARGED WITH ANY OF THE FOLLOWING DIAGNOSIS: No
== END 2018-10-03 12:28 | disposition home or self-care (01) | DRG 897 ==
LOC: ER 11:01 → EH 13:11 → 3N 17:08
PROVIDERS: ADMIT Internal Medicine; ATTEND Internal Medicine
PROC: 3E0234Z Introduction of Serum, Toxoid and Vaccine into Muscle, Percutaneous Approach (ICD-10-PCS; principal; 2018-10-03)
DX: F10.239 Alcohol dependence with withdrawal, unspecified (principal); G40.509 Epileptic seizures related to external causes, not intractable, without status epilepticus; I10 Essential (primary) hypertension; R74.0 Nonspecific elevation of levels of transaminase and lactic acid dehydrogenase [LDH]; H10.9 Unspecified conjunctivitis; F32.9 Major depressive disorder, single episode, unspecified; F17.210 Nicotine dependence, cigarettes, uncomplicated; Y90.0 Blood alcohol level of less than 20 mg/100 ml; Z23 Encounter for immunization
CPT/HCPCS: 36415; 70450; 80053; 80307; 82140; 83690; 83735; 85025; 90686; 93005; 93010; 96374; 96376; 99291; J1650; J1652; J2060; J3411; J3475; J3480; J3490; J7030

== ENCOUNTER 2018-10-30 12:36 | Emergency (ER) | payer BC ==
--- NOTE | 2018-10-30 13:20 | ER Document Report ---
ED Medical Screen (RME) - General Chief Complaint: Eye Problem Stated Complaint: EYE PAIN Time Seen by Provider: 10/30/18 13:17 Notes: Patient is here because of symptoms of "pinkeye". Patient says he has had pink color to his eyes and some tearing for the past couple of weeks. This morning, he awakened to his eye being red and swollen and more uncomfortable. He went to a local urgent care who felt he should be brought here by ambulance. Patient had cold symptoms a couple weeks ago. Has a history of hypertension. Not sure if he is ever had a rapid heartbeat. Says he is on blood pressure medicines because of his increased heart rate. TRAVEL OUTSIDE OF THE [place] IN LAST 30 DAYS: No - Related Data Allergies/Adverse Reactions: No Known Allergies Allergy (Verified 10/01/18 12:32) Past Medical History - Past Medical History Cardiac Medical History: Reports: Hx Hypertension Pulmonary Medical History: Reports: Hx Bronchitis, Hx Pneumonia Renal/ Medical History: Denies: Hx Peritoneal Dialysis Psychiatric Medical History: Reports: Hx Depression - Immunizations Hx Diphtheria, Pertussis, Tetanus Vaccination: No Physical Exam - Vital signs Vitals: Temp Pulse Resp BP Pulse Ox 99.7 F 132 H 20 168/99 H 97 10/30/18 12:52 10/30/18 12:52 10/30/18 12:52 10/30/18 12:52 10/30/18 12:52 Course - Vital Signs Vital signs: Temp Pulse Resp BP Pulse Ox 99.7 F 132 H 20 168/99 H 97 10/30/18 12:52 10/30/18 12:52 10/30/18 12:52 10/30/18 12:52 10/30/18 12:52
[2018-10-30] MEDS ORDERED: NORMAL SALINE 1000 ML 1,000 ML IV ONE (13:55)
--- NOTE | 2018-10-30 13:55 | ER Document Report ---
ED Medical Screen (RME) - General Chief Complaint: Eye Problem Stated Complaint: EYE PAIN Time Seen by Provider: 10/30/18 13:17 Notes: I was called to evaluate this patient over in x-ray, he was standing up to have his PA lateral chest x-ray, and had tonic-clonic like activity, fell to the ground and struck his head off the piece of equipment, causing a scalp laceration to the posterior left aspect of the scalp. C-collar was placed, and patient was moved to the stretcher, and I did identify the patient's laceration, and repaired it with declan, for bleeding control. Good hemostasis obtained patient tolerated well. History obtained from the patient states that he has been having 2 weeks of blurred vision, he is been having a few episodes of seizure-like activity at home as well, he states these episodes have been having ever since his , who he states from sepsis, he has not been taking care of himself. He does wear contacts, he is noticed that his eyes been red, and the vision has been significantly decreased he continues to wear his contacts. On exam the patient has a completely opacified left cornea, with severely injected conjunctiva. He denies having pain with extraocular eye movement, and denies having pain associated with this in general. TRAVEL OUTSIDE OF THE [place] IN LAST 30 DAYS: No - Related Data Allergies/Adverse Reactions: No Known Allergies Allergy (Verified 10/01/18 12:32) Past Medical History - Past Medical History Cardiac Medical History: Reports: Hx Hypertension Pulmonary Medical History: Reports: Hx Bronchitis, Hx Pneumonia Renal/ Medical History: Denies: Hx Peritoneal Dialysis Psychiatric Medical History: Reports: Hx Depression - Immunizations Hx Diphtheria, Pertussis, Tetanus Vaccination: No Physical Exam - Vital signs Vitals: Temp Pulse Resp BP Pulse Ox 99.7 F 132 H 20 168/99 H 97 10/30/18 12:52 10/30/18 12:52 10/30/18 12:52 10/30/18 12:52 10/30/18 12:52 Course - Vital Signs Vital signs: Temp Pulse Resp BP Pulse Ox 99.7 F 132 H 20 168/99 H 97 10/30/18 12:52 10/30/18 12:52 10/30/18 12:52 10/30/18 12:52 10/30/18 12:52 Procedures - Laceration/Wound Repair Left Head Wound length (cm): 3 Wound's Depth, Shape: Linear, Other - into subcutaneous tissues Laceration pre-procedure: Shur-Clens applied Wound explored: Clean Wound Repaired With: Declan Number of Sutures: 7 Layer Closure?: No Complications: No Notes: 10/30/18 13:54 Patient tolerated well.
[2018-10-30 14:10] LABS: APPEARANCE,URINE CLOUDY; BILIRUBIN,URINE SMALL (NEGATIVE); COLOR,URINE AMBER; GLUCOSE, URINE NEGATIVE (NEGATIVE); KETONES,URINE 20 mg/dL (NEGATIVE); LEUKOCYTE ESTERASE,URINE NEGATIVE (NEGATIVE); NITRITE,URINE NEGATIVE (NEGATIVE); PROTEIN,URINE >=500 mg/dL (NEGATIVE); URINE SPECIFIC GRAVITY 1.032
[2018-10-30 14:13] LABS: ABSOLUTE LYMPHOCYTES (AUTO) 1.4 10^3/uL (0.5-4.7); BASOPHILS % (AUTO) 0.6 % (0-2); EOSINOPHILS % (AUTO) 0.5 % (0-6); HEMATOCRIT 51.2 % (37.9-51.0); HEMOGLOBIN 18.1 g/dL (13.5-17.0); LYMPHOCYTES % (AUTO) 18.4 % (13-45); MEAN CORPUSCULAR HEMOGLOBIN 35.6 pg (27.0-33.4); MEAN CORPUSCULAR HGB CONC 35.4 g/dL (32.0-36.0); MEAN CORPUSCULAR VOLUME 101 fl (80-97); MONOCYTES % (AUTO) 13.5 % (3-13); PLATELET COUNT 182 10^3/uL (150-450); RED BLOOD COUNT 5.09 10^6/uL (4.35-5.55); TOTAL CELLS COUNTED % (AUTO) 100 %; WHITE BLOOD COUNT 7.5 10^3/uL (4.0-10.5)
[2018-10-30] MEDS ORDERED: LORAZEPAM INJ 2 MG/1 ML VIAL ONE ×2 (14:22→20:06)
[2018-10-30] MEDS ORDERED: LORAZEPAM INJ 2 MG/1 ML VIAL IV ONE ×5 (14:24→20:04)
--- NOTE | 2018-10-30 14:25 | RADIOLOGY REPORT (SQ) ---
EXAM DESCRIPTION: CT HEAD WITHOUT COMPLETED DATE/TIME: 10/30/2018 2:11 pm REASON FOR STUDY: fall, head injury COMPARISON: 10/01/2018 TECHNIQUE: Axial images acquired through the brain without intravenous contrast. Images reviewed wi th bone, brain and subdural windows. Additional sagittal and coronal reconstructions were generated. Images stored on PACS. All CT scanners at this facility use dose modulation, iterative reconstruction, and/or weight based d osing when appropriate to reduce radiation dose to as low as reasonably achievable (ALARA). [facility]: Dose Right [facility]: CareDose [facility]: Dose Right [facility]: Teradose 4D [facility]: Smart Sprinklr RADIATION DOSE: CT Rad equipment meets quality standard of care and radiation dose reduction techniq ues were employed. CTDIvol: 53.2 mGy. DLP: 1097 mGy-cm. mGy. LIMITATIONS: None. FINDINGS: VENTRICLES: Normal size and contour. CEREBRUM: No masses. No hemorrhage. No midline shift. No evidence for acute infarction. Normal gra y/white matter differentiation. No areas of low density in the white matter. CEREBELLUM: No masses. No hemorrhage. No alteration of density. No evidence for acute infarction. EXTRAAXIAL SPACES: No fluid collections. No masses. ORBITS AND GLOBE: No intra- or extraconal masses. Normal contour of globe without masses. CALVARIUM: No fracture. PARANASAL SINUSES: There is persistent sphenoid sinusitis. There is a small retention cyst or polyp in the right maxillary sinus. SOFT TISSUES: No mass or hematoma. OTHER: No other significant finding. IMPRESSION: 1. No acute intracranial event. 2. Persistent sphenoid sinusitis. EVIDENCE OF ACUTE STROKE: NO. COMMENT: Quality ID # [id number]: Final reports with documentation of one or more dose reduction techniques (e.g., Automated exposure control, adjustment of the mA and/or kV according to patient size, use of iterative reconstruction technique) TECHNICAL DOCUMENTATION: JOB ID: [id number] [employer]- All Rights Reserved Reading location - IP/workstation name: [email or web address]
--- NOTE | 2018-10-30 14:26 | RADIOLOGY REPORT (SQ) ---
EXAM DESCRIPTION: CT CERVICAL SPINE WITHOUT COMPLETED DATE/TIME: 10/30/2018 2:11 pm REASON FOR STUDY: fall, head injury COMPARISON: None. TECHNIQUE: Axial images acquired through the cervical spine without intravenous contrast. Images re viewed with lung, soft tissue and bone windows. Reconstructed coronal and sagittal MPR images review ed. Images stored on PACS. All CT scanners at this facility use dose modulation, iterative reconstruction, and/or weight based d osing when appropriate to reduce radiation dose to as low as reasonably achievable (ALARA). [facility]: Dose Right [facility]: CareDose [facility]: Dose Right [facility]: Teradose 4D [facility]: Smart Technologies RADIATION DOSE: CT Rad equipment meets quality standard of care and radiation dose reduction techniq ues were employed. CTDIvol: 20.0 mGy. DLP: 412 mGy-cm. mGy. LIMITATIONS: None. FINDINGS: ALIGNMENT: Anatomic. MINERALIZATION: Normal. VERTEBRAL BODIES: No fractures or dislocation. DISCS: No significant disc disease. FACETS, LATERAL MASSES, POSTERIOR ELEMENTS: No fractures. No dislocation. No acute findings. HARDWARE: None in the spine. VISUALIZED RIBS: No fractures. LUNG APICES AND SOFT TISSUES: No significant or acute findings. OTHER: No other significant finding. IMPRESSION: NO ACUTE OR SIGNIFICANT FINDINGS IN THE CERVICAL SPINE. TECHNICAL DOCUMENTATION: JOB ID: [id number] Quality ID # [id number]: Final reports with documentation of one or more dose reduction techniques (e.g., Au tomated exposure control, adjustment of the mA and/or kV according to patient size, use of iterative reconstruction technique) 2010 [employer] All Rights Reserved Reading location - IP/workstation name: [email or web address]
[2018-10-30 14:30] LABS: URINE AMPHETAMINES SCREEN NEGATIVE; URINE BARBITURATES SCREEN NEGATIVE; URINE BENZODIAZEPINES SCREEN NEGATIVE; URINE COCAINE SCREEN NEGATIVE; URINE MARIJUANA (THC) SCREEN NEGATIVE; URINE METHADONE SCREEN NEGATIVE; URINE PHENCYCLIDINE SCREEN NEGATIVE
[2018-10-30 14:30] LABS: ALANINE AMINOTRANSFERASE 304 U/L (21-72); ALBUMIN 5.7 g/dL (3.5-5.0); ALKALINE PHOSPHATASE 79 U/L (38-126); ASPARTATE AMINO TRANSFERASE 286 U/L (17-59); BILIRUBIN,DIRECT 0.4 mg/dL (0.0-0.4); BILIRUBIN,TOTAL 1.3 mg/dL (0.2-1.3); BLOOD UREA NITROGEN 8 mg/dL (7-20); CALCIUM 10.5 mg/dL (8.4-10.2); GLUCOSE 119 mg/dL (75-110); POTASSIUM 4.1 mmol/L (3.6-5.0); TOTAL PROTEIN 9.2 g/dL (6.3-8.2)
[2018-10-30] MEDS ORDERED: THIAMINE HCL 500 MG in NORMAL SALINE 250 ML IV SCH (14:30)
[2018-10-30] MEDS ORDERED: THIAMINE HCL 100 MG in NORMAL SALINE 50 ML IV ONE ×2 (14:32→16:32)
[2018-10-30 14:36] LABS: CARBON DIOXIDE 19 mmol/L (22-30); CHLORIDE 96 mmol/L (98-107)
[2018-10-30] MEDS ORDERED: TETRACAINE HCL 0.5% OPH SOLN 4 ML ONE (14:37)
[2018-10-30 14:39] LABS: ANION GAP 26 (5-19)
[2018-10-30 14:45] LABS: CREATINE KINASE MB 0.86 ng/mL (<4.55)
--- NOTE | 2018-10-30 14:45 | RADIOLOGY REPORT (SQ) ---
EXAM DESCRIPTION: CHEST SINGLE VIEW COMPLETED DATE/TIME: 10/30/2018 2:35 pm REASON FOR STUDY: Tachycardia/ PER DR SAL COMPARISON: 09/02/1979 1,015 EXAM PARAMETERS: NUMBER OF VIEWS: One view. TECHNIQUE: Single frontal radiographic view of the chest acquired. RADIATION DOSE: NA LIMITATIONS: None. FINDINGS: LUNGS AND PLEURA: No opacities, masses or pneumothorax. No pleural effusion. MEDIASTINUM AND HILAR STRUCTURES: No masses. Contour normal. HEART AND VASCULAR STRUCTURES: Heart normal in size. Normal vasculature. BONES: No acute findings. HARDWARE: None in the chest. OTHER: No other significant finding. IMPRESSION: NO ACUTE RADIOGRAPHIC FINDING IN THE CHEST. TECHNICAL DOCUMENTATION: JOB ID: [id number] [employer]- All Rights Reserved Reading location - IP/workstation name: [email or web address]
[2018-10-30 14:47] LABS: TROPONIN I < 0.012 ng/mL
[2018-10-30 14:51] LABS: FREE T4 (FREE THYROXINE) 1.04 ng/dL (0.78-2.19)
[2018-10-30] MEDS: MAGNESIUM SULFATE/D5W 1 GM/100 ML RTUPB IV SCH ×2 (15:00→15:19)
[2018-10-30 15:05] LABS: THYROID STIMULATING HORMONE 1.83 uIU/mL (0.47-4.68)
--- NOTE | 2018-10-30 15:09 | ER Document Report ---
ED General - General Chief Complaint: Eye Problem Stated Complaint: EYE PAIN Time Seen by Provider: 10/30/18 13:17 Mode of Arrival: Stretcher Information source: Patient, Emergency Med Personnel, [facility] Records Notes: 38-year-old man with a history of alcohol withdrawal seizures and hypertension w ho initially presented with left eye irritation. The patient reportedly was treated with antibiotic drops for this. He is a contact lens wearer and had initially said that he had had tried to take out his contact lens. He reports that he was unable to do it so he did not think it was in. While the patient was in x-ray, patient had a witnessed tonic-clonic seizure and fell and hit the back of his head and sustained a left occipital laceration. Patient received 7 declan to the left occipital region by the triage doctor. On my arrival to the trauma room 2, the patient is alert and oriented x3. He is tachycardic and tremulous. He does look as if he is in acute alcohol withdrawal. He is moving his upper and lower extremities. He denies any headache, chest pain, abdominal pain. His last drink was yesterday and states he has been trying to cut down. Allergies: None TRAVEL OUTSIDE OF THE [place] IN LAST 30 DAYS: No - HPI Onset: Last week Onset/Duration: Gradual Quality of pain: No pain, Other Severity: Moderate - Left eye irritation Pain Level: 3 Associated symptoms: denies: Chest pain, Fever, Shortness of breath Exacerbated by: Denies Relieved by: Denies Similar symptoms previously: Yes Recently seen / treated by doctor: Yes - Related Data Allergies/Adverse Reactions: No Known Allergies Allergy (Verified 10/30/18 14:13) Past Medical History - General Information source: Patient - Social History Smoking Status: Current Every Day Smoker Cigarette use (# per day): Yes - Half a pack per day Chew tobacco use (# tins/day): No Smoking Education Provided: No Frequency of alcohol use: Heavy Drug Abuse: None Lives with: Alone Family History: Hypertension Patient has suicidal ideation: No Patient has homicidal ideation: No - Past Medical History Cardiac Medical History: Reports: Hx Hypertension Pulmonary Medical History: Reports: Hx Bronchitis, Hx Pneumonia Renal/ Medical History: Denies: Hx Peritoneal Dialysis Psychiatric Medical History: Reports: Hx Depression Surgical Hx: Negative - Immunizations Hx Diphtheria, Pertussis, Tetanus Vaccination: No Review of Systems - Review of Systems Constitutional: denies: Chills, Fever EENT: See HPI, Eye discharge, Blurred vision Cardiovascular: No symptoms reported Respiratory: No symptoms reported Gastrointestinal: No symptoms reported Genitourinary: No symptoms reported Male Genitourinary: No symptoms reported Musculoskeletal: See HPI Skin: No symptoms reported Hematologic/Lymphatic: No symptoms reported Neurological/Psychological: See HPI Physical Exam - Vital signs Vitals: Temp Pulse Resp BP Pulse Ox 99.7 F 132 H 20 168/99 H 97 10/30/18 12:52 10/30/18 12:52 10/30/18 12:52 10/30/18 12:52 10/30/18 12:52 Notes: Physical exam: GENERAL: 38-year-old man, alert and oriented x3, he is conversant and answering questions. He denies any headache, chest pain or abdominal pain. He is tachycardic. His temperature in triage was afebrile. HEAD: Patient has a 4 cm laceration to the left occipital area which was closed by the triage doc with 7 declan. The area was cleaned. EYES: Right eye (unaffected eye): Patient states he is able to see out of there. He is is able to read fingers appropriately. Because of the alcohol withdrawal seizures, he is not allowed to stand or taken to the eye chart. Contact lens was removed. The sclera is clear. The pupil is round and reactive to light. The pressure in that eye is 20 with a 95% confidence interval (Kennedy-Pen). Left eye: Diffuse erythema of the conjunctiva with swelling of the sub- conjunctiva around the pupil: 360 degrees. The contact lens is evident and removed. The cornea is so cloudy that it is difficult to see if he has any pupil reaction to light. There is an obvious hypopyon. His pressure in that eye is 38 with a 95% confidence interval (Kennedy-Pen). The patient is able to see my face but cannot tell how many fingers I hold up: There is a significant reduction in this vision. Floor seen: Diffuse uptake across the whole cornea. There does appear to be a more concentrated area (possibly an ulcer) at around 5:00. There is no obvious dendritic lesions. ENT: TMs normal, nares patent, oropharynx clear without exudates. Moist mucous membranes. NECK: Normal range of motion, supple without obvious mass or JVD. LUNGS: Breath sounds clear to auscultation bilaterally and equal. No wheezes rales or rhonchi. HEART: Regular rate and rhythm without murmurs, rubs or gallops. ABDOMEN: Soft, normoactive bowel sounds. No tenderness to palpation. No guarding, no rebound. No masses appreciated. EXTREMITIES: Normal range of motion, no pitting or edema. No clubbing or cyanosis. NEUROLOGICAL: Cranial nerves II through XII grossly intact. Normal speech, moving all extremities. PSYCH: Normal mood, normal affect. SKIN: Bruising to the left upper extremity. Left occipital laceration is mentioned above. Course - Re-evaluation Re-evalutation: 10/30/18 15:13 For the alcohol withdrawal seizures: Ativan 2 mg IV given Thiamine 100 mg IV Magnesium 2 g IV IV fluids Due to the fall: Laceration to the left occipital region was closed with declan CT of the head shows no acute intracranial pathology. I did have the radiologist (Dr. Pierre) view of the left orbit and there was no obvious obstructing masses. CT of the cervical spine shows no acute fracture. Chest x-ray was clear Reassessment of the patient's cervical spine: Nontender with full range of motion. Given that the patient is alert and oriented x3, his cervical spine was cleared. For the left eye: I called to the pharmacist to order some Vigamox (not in the ordering set in the ER): She will be sending down this. [employer] Instructor at [facility] (not waterfront director here). The first Vigamox dose was at 1520 and we will continue this hourly. Pharmacy has been contacted (this is a medicine I can put the order in electronically with the order sets we have in the ER). 10/30/18 16:50 10/30/18 20:[address] Rubi (ophthalmology) at [facility] who agrees that the patient should be evaluated by ophthalmology. Clearly, the patient requires acute hospitalization to the medicine service for the acute alcohol withdrawal and ophthalmology can be seen in consult. We switched from Vigamox to Cipro with the idea that the Cipro might provide better Pseudomonas coverage. Patient has been receiving IV Ativan periodically for the acute alcohol withdrawal. He has remained lucid, alert and oriented x3. His heart rate currently is down to 116 and his vital signs are stable and he is stable for transport. Transport is here. 10/30/18 20:57 Note: There is no ophthalmology on-call at this time. I did call 1 of the local shingle catcher but they are unable to do inpatient consultations. I did contact both [facility] and [facility] but they are on significant bed delay. I did call [facility] and I spoke to their shingle catcher who is willing to consult, but they are on significant bed delay. I spoke to [facility] and they are able to accept patient in transfer from ER to ER. - Vital Signs Vital signs: Temp Pulse Resp BP Pulse Ox 98 F 132 H 16 160/90 H 98 10/30/18 20:15 10/30/18 12:52 10/30/18 20:15 10/30/18 20:15 10/30/18 20:15 - Laboratory Result Diagrams: 10/30/18 13:50 10/30/18 13:50 Laboratory results interpreted by me: 10/30/18 10/30/18 10/30/18 13:40 13:50 13:50 Hgb 18.1 H Hct 51.2 H MCV 101 H MCH 35.6 H Monocytes % 13.5 H Chloride 96 L Carbon Dioxide 19 L Anion Gap 26 H Glucose 119 H Calcium 10.5 H AST 286 H ALT 304 H Total Protein 9.2 H Albumin 5.7 H Urine Protein >=500 H Urine Ketones 20 H Urine Bilirubin SMALL H Urine Urobilinogen 2.0 H - Diagnostic Test Radiology reviewed: Image reviewed, Reports reviewed - CT of the head shows no acute intracranial process. CT of the cervical spine shows no acute fracture. Chest x-ray shows no infiltrates. - EKG Interpretation by Me Rate: Tachycardia - EKG shows sinus tachycardia with a ventricular rate of 149, QTC 473, no acute ST-T wave changes Critical Care Note - Critical Care Note Total time excluding time spent on procedures (mins): 90 Discharge - Discharge Clinical Impression: Acute alcohol withdrawal, Alcohol withdrawal seizure, Left eye infection with vision loss, Left occipital scalp laceration Condition: Serious Disposition: [facility]
[2018-10-30] MEDS ORDERED: DIPH/PERTUSS(ACELL)/TETANUS VAC/PF 0.5 ML SYR (>=10YO) IM ONE (15:12)
[2018-10-30] MEDS ORDERED: MOXIFLOXACIN HCL 0.5% OPH SOLN 3 ML OS ONE (16:00)
[2018-10-30] MEDS: MOXIFLOXACIN HCL 0.5% OPH SOLN 3 ML OS SCH ×3 (16:20→18:50)
[2018-10-30] MEDS ORDERED: THIAMINE HCL 100 MG TABLET PO ONE (16:51)
[2018-10-30] MEDS: CIPROFLOXACIN HCL 0.3% OPH SOLN 2.5 ML OS SCH ×3 (17:21→20:10)
[2018-10-30] MEDS ORDERED: ONDANSETRON HCL INJ/PF 4 MG/2 ML SDV IV ONE (20:04)
[2018-10-30 20:20] VITALS: BP 160/90
--- NOTE | 2018-10-30 21:56 | EKG REPORT ---
SEVERITY:- ABNORMAL ECG - SINUS TACHYCARDIA NONSPECIFIC INTRAVENTRICULAR CONDUCTION DELAY ANTEROLATERAL INFARCT, OLD : Confirmed by: Patrizia Rodríguez 30-Oct-2018 21:55:42
== END 2018-10-30 21:10 | disposition short-term general hospital (02) ==
LOC: ER 12:36
PROC: 0HQ0XZZ Repair Scalp Skin, External Approach (ICD-10-PCS; principal; 2018-10-30)
DX: F10.239 Alcohol dependence with withdrawal, unspecified (principal); S01.01XA Laceration without foreign body of scalp, initial encounter; R56.9 Unspecified convulsions; H57.9 Unspecified disorder of eye and adnexa; H53.122 Transient visual loss, left eye; H57.12 Ocular pain, left eye; W19.XXXA Unspecified fall, initial encounter; Y92.538 Other ambulatory health services establishments as the place of occurrence of the external cause; F17.210 Nicotine dependence, cigarettes, uncomplicated; I10 Essential (primary) hypertension
CPT/HCPCS: 93005; 96376; 99291; 99292; 96361; 90471; 96375; 96365; 96368; 36415; 87040; 84439; 82553; 80307 ×2; 83735; 84443; 85025; 87077; 80053; 81001; 84484; 83605; 71045; 70450; 72125; 90715; 93010; 12001; J2060; J3475; J3490 ×3; J3411; J7030

== ENCOUNTER 2019-04-16 17:08 | Emergency (ER) | payer BC ==
[~2019-04-16 17:08] MED LIST: ATROPINE SULFATE INJ 1 MG/10 ML DISP.SYRIN IV ONE; EPINEPHRINE INJ 1 MG/10 ML DISP.SYRIN ONE; ROCURONIUM BROMIDE INJ 50 MG/5 ML VIAL IV ONE
[2019-04-16] MEDS ORDERED: NORMAL SALINE 1000 ML 1,000 ML IV PRN ×2 (17:12→18:42)
--- NOTE | 2019-04-16 17:48 | RADIOLOGY REPORT (SQ) ---
EXAM DESCRIPTION: CHEST SINGLE VIEW COMPLETED DATE/TIME: 04/16/2019 5:25 pm REASON FOR STUDY: SOB COMPARISON: 10/30/2018 TECHNIQUE: Single frontal radiographic view of the chest acquired. NUMBER OF VIEWS: One view. LIMITATIONS: None. FINDINGS: LUNGS AND PLEURA: No pneumothorax. Bilateral basilar patchy consolidation. No significan t pleural effusion. MEDIASTINUM AND HILAR STRUCTURES: Stable. HEART AND VASCULAR STRUCTURES: Stable. BONES: No acute findings. HARDWARE: None in the chest. OTHER: No other significant finding. IMPRESSION: Bilateral basilar patchy consolidation. No significant pleural effusion. TECHNICAL DOCUMENTATION: JOB ID: [id number] [place]-72 2010 [employer]- All Rights Reserved Reading location - IP/workstation name: [email or web address]
[2019-04-16 18:23] LABS: HEMATOCRIT 41.9 % (37.9-51.0); HEMOGLOBIN 14.3 g/dL (13.5-17.0); MEAN CORPUSCULAR HEMOGLOBIN 36.2 pg (27.0-33.4); MEAN CORPUSCULAR VOLUME 106 fl (80-97); PLATELET COUNT 198 10^3/uL (150-450); RED BLOOD COUNT 3.94 10^6/uL (4.35-5.55); RED CELL DISTRIBUTION WIDTH 13.5 % (11.5-14.0); VENOUS BLOOD BASE EXCESS -6.9 mmol/L; VENOUS BLOOD HCO3 18.8 mmol/L (20-32); VENOUS BLOOD PCO2 38.3 mmHg (35-63); VENOUS BLOOD PH 7.31 (7.30-7.42)
[2019-04-16 18:30] LABS: INTERNATIONAL RATION (INR) 1.65; PROTHROMBIN TIME 19.7 SEC (11.4-15.4)
[2019-04-16 18:38] LABS: APPEARANCE,URINE SLIGHTLY-CLOUDY; BILIRUBIN,URINE SMALL (NEGATIVE); COLOR,URINE AMBER; GLUCOSE, URINE NEGATIVE (NEGATIVE); KETONES,URINE TRACE mg/dL (NEGATIVE); LEUKOCYTE ESTERASE,URINE NEGATIVE (NEGATIVE); NITRITE,URINE NEGATIVE (NEGATIVE); PROTEIN,URINE 100 mg/dL (NEGATIVE); URINE SPECIFIC GRAVITY 1.017
[2019-04-16 18:40] LABS: ALBUMIN 2.8 g/dL (3.5-5.0); ALKALINE PHOSPHATASE 164 U/L (38-126); ASPARTATE AMINO TRANSFERASE 151 U/L (17-59); BILIRUBIN,DIRECT 1.6 mg/dL (0.0-0.4); BILIRUBIN,TOTAL 2.6 mg/dL (0.2-1.3); BLOOD UREA NITROGEN 20 mg/dL (7-20); CALCIUM 7.4 mg/dL (8.4-10.2); POTASSIUM 3.7 mmol/L (3.6-5.0); TOTAL PROTEIN 5.3 g/dL (6.3-8.2)
[2019-04-16 18:44] LABS: ABSOLUTE LYMPHOCYTES# (MANUAL) 0.8 10^3/uL (0.5-4.7); BASOPHILS % (MANUAL) 0 % (0-2); EOSINOPHILS % (MANUAL) 0 % (0-6); LYMPHOCYTES % (MANUAL) 4 % (13-45); MONOCYTES % (MANUAL) 5 % (3-13); SEGMENTED NEUTROPHILS % (MAN) 91 % (42-78); TOTAL CELLS COUNTED 100
[2019-04-16 18:45] LABS: PLATELET COMMENT ADEQUATE; PLATELET LARGE PRESENT; POLYCHROMASIA 1+; TOXIC VACUOLATION PRESENT
[2019-04-16 18:59] LABS: CARBON DIOXIDE 17 mmol/L (22-30); CHLORIDE 82 mmol/L (98-107)
[2019-04-16 19:00] LABS: ANION GAP 23 (5-19)
[2019-04-16 19:02] LABS: GLUCOSE 68 mg/dL (75-110)
[2019-04-16] MEDS ORDERED: DEXTROSE 50%-WATER 25 GM/50 ML DISP.SYRIN IV ONE ×2 (19:02→19:03)
[2019-04-16 19:03] LABS: CREATINE KINASE 230 U/L (55-170)
[2019-04-16 19:07] LABS: ACETAMINOPHEN < 10 ug/mL (10-30); ALCOHOL < 10 mg/dL (NONE DETECTED); SALICYLATE < 1.0 mg/dL (2.0-20.0)
[2019-04-16 19:15] LABS: CREATINE KINASE MB 5.4 ng/mL (<4.55)
[2019-04-16 19:24] LABS: TROPONIN I 0.035 ng/mL
[2019-04-16] MEDS ORDERED: ATROPINE SULFATE INJ 0.4 MG/1 ML VIAL ONE (19:24)
[2019-04-16] MEDS ORDERED: EPINEPHRINE INJ/PF 1 MG/1 ML AMPULE ONE (19:33)
--- NOTE | 2019-04-16 19:34 | RADIOLOGY REPORT (SQ) ---
EXAM DESCRIPTION: CT ABD/PELVIS NO ORAL OR IV; CT CHEST WITHOUT COMPLETED DATE/TIME: 04/16/2019 7:14 pm REASON FOR STUDY: SOB, AMS, abd pain; SOB, AMS COMPARISON: None. TECHNIQUE: CT scan of the chest performed without intravenous contrast using helical scanning techni que. Images reviewed with lung, soft tissue and bone windows. Reconstructed coronal and sagittal MPR images reviewed. All images stored on PACS. All CT scanners at this facility use dose modulation, iterative reconstruction, and/or weight based d osing when appropriate to reduce radiation dose to as low as reasonably achievable (ALARA). [facility]: Dose Right [facility]: CareDose [facility]: Dose Right [facility]: TerOneStopWebe 4D [facility]: [employer] RADIATION DOSE: CT Rad equipment meets quality standard of care and radiation dose reduction techniq ues were employed. CTDIvol: 15.8 mGy. DLP: 1174 mGy-cm. mGy. LIMITATIONS: None. FINDINGS: AXILLAE: No adenopathy. CHEST WALL: No masses. No subcutaneous air. LUNGS: No pneumothorax. Patchy airspace opacities are present throughout both lungs. Bronchial wall thickening and scattered areas of subsegmental atelectasis. PLEURA: Small right pleural effusion. THYROID: No masses or significant asymmetry. HILAR AND MEDIASTINAL STRUCTURES: Fluid distended esophagus. No bulky nodes. AORTA AND GREAT VESSELS: No aneurysm. HEART: No pericardial effusion. HARDWARE AND LIFELINES: Right IJ central venous catheter tip overlies the RA -SVC junction. BONES: No acute finding. OTHER: No other significant finding. IMPRESSION: No pneumothorax. Patchy airspace opacities are present throughout both lungs. Bronchial wall thickening and scattered areas of subsegmental atelectasis. Fluid distended esophagus. COMPARISON: None. TECHNIQUE: CT scan of the abdomen and pelvis performed without intravenous contrast and withoutoral contrast using helical scanning technique with dynamic intravenous contrast injection. Images review ed with lung, soft tissue and bone windows. Reconstructed coronal and sagittal MPR images reviewed. All images stored on PACS. All CT scanners at this facility use dose modulation, iterative reconstruction, and/or weight based d osing when appropriate to reduce radiation dose to as low as reasonably achievable (ALARA). [facility]: Dose Right [facility]: SureCare [facility]: Dose Right [facility]: Teradose 4D [facility]: Smart [employer] RADIATION DOSE: CT Rad equipment meets quality standard of care and radiation dose reduction techniq ues were employed. CTDIvol: 15.8 mGy. DLP: 1174 mGy-cm.mGy. LIMITATIONS: None. FINDINGS: LIVER: Large amount of ascites. Mild hepatomegaly. Diffuse fatty infiltration of the fanny er. No dilated ducts. SPLEEN: Normal size. No focal lesions. PANCREAS: Pancreatic duct not dilated. GALLBLADDER: No identified stones by CT criteria. ADRENAL GLANDS: No significant masses or asymmetry. RIGHT KIDNEY AND URETER: No solid masses. Assessment limited by lack of IV contrast. No significant c alcification. No hydronephrosis or hydroureter. LEFT KIDNEY AND URETER: No solid masses. Assessment limited by lack of IV contrast. No significant ca lcification. No hydronephrosis or hydroureter. AORTA AND VESSELS: No aneurysm. RETROPERITONEUM: No retroperitoneal adenopathy, hemorrhage or masses. APPENDIX: Not visualized. LARGE AND SMALL BOWEL: No dilatation. ABDOMINAL WALL: Diffuse body wall edema. PERITONEAL CAVITY: No free air. No free fluid. No peritoneal implants or masses. PELVIS: Kwon catheter decompresses the bladder. Large amount of pelvic free fluid. BONES: No acute findings. OTHER: No other significant finding. IMPRESSION: Large amount of ascites. Mild hepatomegaly. Diffuse fatty infiltration of the liver. Kwon catheter decompresses the bladder. Large amount of pelvic free fluid. Diffuse body wall edema. TECHNICAL DOCUMENTATION: JOB ID: [id number] [place]-72 Quality ID # 436: Final reports with documentation of one or more dose reduction techniques (e.g., Au tomated exposure control, adjustment of the mA and/or kV according to patient size, use of iterative reconstruction technique) 2010 [employer]- All Rights Reserved Reading location - IP/workstation name: [email or web address]
--- NOTE | 2019-04-16 19:34 | RADIOLOGY REPORT (SQ) ---
EXAM DESCRIPTION: CT ABD/PELVIS NO ORAL OR IV; CT CHEST WITHOUT COMPLETED DATE/TIME: 04/16/2019 7:14 pm REASON FOR STUDY: SOB, AMS, abd pain; SOB, AMS COMPARISON: None. TECHNIQUE: CT scan of the chest performed without intravenous contrast using helical scanning techni que. Images reviewed with lung, soft tissue and bone windows. Reconstructed coronal and sagittal MPR images reviewed. All images stored on PACS. All CT scanners at this facility use dose modulation, iterative reconstruction, and/or weight based d osing when appropriate to reduce radiation dose to as low as reasonably achievable (ALARA). [facility]: Dose Right [facility]: CareDose [facility]: Dose Right [facility]: TerBrandFiestae 4D [facility]: [employer] RADIATION DOSE: CT Rad equipment meets quality standard of care and radiation dose reduction techniq ues were employed. CTDIvol: 15.8 mGy. DLP: 1174 mGy-cm. mGy. LIMITATIONS: None. FINDINGS: AXILLAE: No adenopathy. CHEST WALL: No masses. No subcutaneous air. LUNGS: No pneumothorax. Patchy airspace opacities are present throughout both lungs. Bronchial wall thickening and scattered areas of subsegmental atelectasis. PLEURA: Small right pleural effusion. THYROID: No masses or significant asymmetry. HILAR AND MEDIASTINAL STRUCTURES: Fluid distended esophagus. No bulky nodes. AORTA AND GREAT VESSELS: No aneurysm. HEART: No pericardial effusion. HARDWARE AND LIFELINES: Right IJ central venous catheter tip overlies the RA -SVC junction. BONES: No acute finding. OTHER: No other significant finding. IMPRESSION: No pneumothorax. Patchy airspace opacities are present throughout both lungs. Bronchial wall thickening and scattered areas of subsegmental atelectasis. Fluid distended esophagus. COMPARISON: None. TECHNIQUE: CT scan of the abdomen and pelvis performed without intravenous contrast and withoutoral contrast using helical scanning technique with dynamic intravenous contrast injection. Images review ed with lung, soft tissue and bone windows. Reconstructed coronal and sagittal MPR images reviewed. All images stored on PACS. All CT scanners at this facility use dose modulation, iterative reconstruction, and/or weight based d osing when appropriate to reduce radiation dose to as low as reasonably achievable (ALARA). [facility]: Dose Right [facility]: SureCare [facility]: Dose Right [facility]: Teradose 4D [facility]: Smart [employer] RADIATION DOSE: CT Rad equipment meets quality standard of care and radiation dose reduction techniq ues were employed. CTDIvol: 15.8 mGy. DLP: 1174 mGy-cm.mGy. LIMITATIONS: None. FINDINGS: LIVER: Large amount of ascites. Mild hepatomegaly. Diffuse fatty infiltration of the fanny er. No dilated ducts. SPLEEN: Normal size. No focal lesions. PANCREAS: Pancreatic duct not dilated. GALLBLADDER: No identified stones by CT criteria. ADRENAL GLANDS: No significant masses or asymmetry. RIGHT KIDNEY AND URETER: No solid masses. Assessment limited by lack of IV contrast. No significant c alcification. No hydronephrosis or hydroureter. LEFT KIDNEY AND URETER: No solid masses. Assessment limited by lack of IV contrast. No significant ca lcification. No hydronephrosis or hydroureter. AORTA AND VESSELS: No aneurysm. RETROPERITONEUM: No retroperitoneal adenopathy, hemorrhage or masses. APPENDIX: Not visualized. LARGE AND SMALL BOWEL: No dilatation. ABDOMINAL WALL: Diffuse body wall edema. PERITONEAL CAVITY: No free air. No free fluid. No peritoneal implants or masses. PELVIS: Kwon catheter decompresses the bladder. Large amount of pelvic free fluid. BONES: No acute findings. OTHER: No other significant finding. IMPRESSION: Large amount of ascites. Mild hepatomegaly. Diffuse fatty infiltration of the liver. Kwon catheter decompresses the bladder. Large amount of pelvic free fluid. Diffuse body wall edema. TECHNICAL DOCUMENTATION: JOB ID: [id number] [place]-72 Quality ID # [id number]: Final reports with documentation of one or more dose reduction techniques (e.g., Au tomated exposure control, adjustment of the mA and/or kV according to patient size, use of iterative reconstruction technique) 2010 [employer]- All Rights Reserved Reading location - IP/workstation name: [email or web address]
--- NOTE | 2019-04-16 19:38 | RADIOLOGY REPORT (SQ) ---
EXAM DESCRIPTION: CT HEAD WITHOUT COMPLETED DATE/TIME: 04/16/2019 7:24 pm REASON FOR STUDY: ams COMPARISON: 10/30/2018 TECHNIQUE: Axial images acquired through the brain without intravenous contrast. Images reviewed wit h bone, brain and subdural windows. Images stored on PACS. All CT scanners at this facility use dose modulation, iterative reconstruction, and/or weight based d osing when appropriate to reduce radiation dose to as low as reasonably achievable (ALARA). [facility]: Dose Right [facility]: CareDose [facility]: Dose Right [facility]: Teradose 4D [facility]: [employer] RADIATION DOSE: CT Rad equipment meets quality standard of care and radiation dose reduction techniq ues were employed. CTDIvol: 53.2 mGy. DLP: 1017 mGy-cm.. LIMITATIONS: None. FINDINGS: VENTRICLES: Normal size and contour. CEREBRUM: No masses. No hemorrhage. No midline shift. Age appropriate white matter. No evidence for a cute infarction. CEREBELLUM: No masses. No hemorrhage. No alteration of density. No evidence for acute infarction. EXTRA-AXIAL SPACES: No fluid collections. ORBITS AND GLOBE: No intra- or extraconal masses. Normal contour of globe without masses. CALVARIUM: No fracture. PARANASAL SINUSES: No fluid. Minimal sphenoid mucosal thickening. SOFT TISSUES: No mass or hematoma. OTHER: No other significant finding. IMPRESSION: NO ACUTE INTRACRANIAL FINDINGS. EVIDENCE OF ACUTE STROKE: NO. TECHNICAL DOCUMENTATION: JOB ID: [id number] [place]-72 Quality ID # [id number]: Final reports with documentation of one or more dose reduction techniques (e.g., Au tomated exposure control, adjustment of the mA and/or kV according to patient size, use of iterative reconstruction technique) 2010 [employer]- All Rights Reserved Reading location - IP/workstation name: [email or web address]
[2019-04-16] MEDS ORDERED: ERTAPENEM SODIUM INJ 1 GM VIAL IV ONE (19:39)
[2019-04-16] MEDS ORDERED: SODIUM BICARBONATE 8.4% INJ 50 MEQ/50 ML DISP.SYRIN ONE (19:40)
[2019-04-16] MEDS ORDERED: NORMAL SALINE 250 ML IV PRN ×2 (19:52→19:54)
[2019-04-16] MEDS ORDERED: ROCURONIUM BROMIDE INJ 50 MG/5 ML VIAL IV ONE (19:53)
[2019-04-16] MEDS ORDERED: PANTOPRAZOLE SODIUM 40 MG VIAL IV ONE (19:57)
[2019-04-16] MEDS ORDERED: PANTOPRAZOLE SODIUM 40 MG VIAL IV PRN (19:58)
[2019-04-16] MEDS ORDERED: FENTANYL CITRATE INJ/PF 100 MCG/2 ML AMPUL ONE (20:31)
[2019-04-16 20:52] LABS: HEMATOCRIT 46.7 % (37.9-51.0); HEMOGLOBIN 14.9 g/dL (13.5-17.0); MEAN CORPUSCULAR HEMOGLOBIN 33.8 pg (27.0-33.4); MEAN CORPUSCULAR HGB CONC 31.9 g/dL (32.0-36.0); MEAN CORPUSCULAR VOLUME 106 fl (80-97); PLATELET COUNT 137 10^3/uL (150-450); RED BLOOD COUNT 4.41 10^6/uL (4.35-5.55); RED CELL DISTRIBUTION WIDTH 17.2 % (11.5-14.0); WHITE BLOOD COUNT 19.4 10^3/uL (4.0-10.5)
[2019-04-16] MEDS ORDERED: NOREPINEPHRINE BITARTRATE INJ/PF 4 MG/4 ML SDV IV ONE (20:52)
[2019-04-16 20:53] LABS: ARTERIAL BLOOD BASE EXCESS -23.7 mmol/L; ARTERIAL BLOOD FIO2 100%; ARTERIAL BLOOD H2CO3 2.78 mmol/L (1.05-1.35); ARTERIAL BLOOD HCO3 13.1 mmol/L (20-24); ARTERIAL BLOOD O2 SATURATION 65.6 % (94-98); ARTERIAL BLOOD PO2 63.7 mmHg (80-100)
[2019-04-16 20:56] LABS: ARTERIAL BLOOD PCO2 92.4 mmHg (35-45); ARTERIAL BLOOD PH 6.77 (7.35-7.45)
[2019-04-16] MEDS ORDERED: DEXTROSE 5%-WATER 250 ML with NOREPINEPHRINE BITARTRATE 4 MG IV PRN ×2 (21:05)
--- NOTE | 2019-04-16 21:06 | RADIOLOGY REPORT (SQ) ---
XR CHEST 1 VIEW EXAM DATE: 04/16/2019 12:00 AM CDT HISTORY: CL PLACEMENT. COMPARISON: Radiographs from earlier the same day. FINDINGS: Query cardiomegaly with pulmonary vascular congestion. Interval increase in bilateral perihilar opacities. No pneumothorax. Endotracheal tube is 2.5 cm from the nasim. Enteric tube courses below the left hemidiaphragm. Right central venous line terminates at the cavoatrial junction. IMPRESSION: 1. Diffuse pulmonary edema with perihilar opacities. 2. Support devices as described above.
[2019-04-16 21:16] LABS: ABSOLUTE LYMPHOCYTES# (MANUAL) 1.7 10^3/uL (0.5-4.7); ABSOLUTE MONOCYTES # (MANUAL) 1.9 10^3/uL (0.1-1.4); BAND NEUTROPHILS % (MANUAL) 4 % (3-5); BASOPHILS % (MANUAL) 0 % (0-2); EOSINOPHILS % (MANUAL) 0 % (0-6); LYMPHOCYTES % (MANUAL) 9 % (13-45); MONOCYTES % (MANUAL) 10 % (3-13); SEGMENTED NEUTROPHILS % (MAN) 77 % (42-78); TOTAL CELLS COUNTED 100
[2019-04-16 21:17] LABS: ANISOCYTOSIS 1+; PLATELET COMMENT DECREASED; TOXIC GRANULATION 1+; TOXIC VACUOLATION PRESENT
--- NOTE | 2019-04-16 23:40 | OPERATIVE REPORT E ---
Operative Report NAME: VALERIA PEOPLES : 1980 AGE: 39Y DATE OF SURGERY: 04/16/2019 ROOM: PREOPERATIVE DIAGNOSIS: POSTOPERATIVE DIAGNOSIS: OPERATION: Insertion of right internal jugular vein triple-lumen catheter under ultrasound guidance. SURGEON: MARILOU CABA M.D. ANESTHESIA: Local. INDICATION: This is a 39-year-old male brought to ED with abdominal distention and hypotension and poor veins for IV access. Initially had failed attempt to place a right femoral vein catheter. PROCEDURE: Patient was placed in Trendelenburg position and the right leg prepped and draped in the usual sterile fashion. With the use of the ultrasound, the right internal jugular vein was then identified and local anesthesia infiltrated over the skin. The right internal jugular vein was then punctured and guidewire passed through the needle towards the area of the superior vena cava. The needle was removed and the puncture site enlarged. A triple-lumen catheter was then inserted through the guidewire to a distance of about 17 cm. The guidewire was removed and all the 3 ports aspirated, bled easily and instilled saline easily. Catheter was then anchored to the skin with 3-0 silk and BIO Patch placed at the insertion site. Transparent sterile dressing placed over the site and catheter. A chest x-ray will be obtained for placement. DICTATING PHYSICIAN: MARILOU CABA M.D. [id number] PHY#: [id number] ID: [id number] JOB#: [id number] ACCT: [id number] cc:MARILOU CABA M.D. >
[2019-04-17 08:05] VITALS: BP 89/61
[2019-04-17] MEDS ORDERED: ETOMIDATE INJ/PF 20 MG/10 ML SDV IV ONE (08:35)
--- NOTE | 2019-04-17 10:12 | EKG REPORT ---
SEVERITY:- BORDERLINE ECG - SINUS TACHYCARDIA BORDERLINE PROLONGED QT INTERVAL : Confirmed by: Patrizia Rodríguez 17-Apr-2019 10:10:48
--- NOTE | 2019-04-17 21:33 | ER Document Report ---
Entered by ERIN TINEO SCRIBE 04/16/19 1734 Acting as scribe for:KIMBER KUMAR DO ED General - General Chief Complaint: Respiratory Distress Stated Complaint: RESPIRATORY DISTRESS Time Seen by Provider: 04/16/19 17:11 Mode of Arrival: Medic Information source: Patient, Emergency Med Personnel, [facility] Records Cannot obtain history due to: Unstable vital signs Notes: Patient is a 39 year old male with a long history of EtOH abuse that presents to the emergency department today with complaints of abdominal pain and respiratory distress according to EMS. Patient has significant abdominal distension on presentation which he reports noticing this morning with some associated discomfort. EMS reports that when they arrived at the patient's residence today he was tachypneic, diaphoretic, hypoxic, and tachycardic. He was placed on CPAP immediately. Patient denies any recent EtOH abuse. Patient denies taking anything to overdose. History is somewhat limited secondary to the patient's medical condition. EMS mentions that the patient has had multiple recent deaths in his family including his and father within the last few months. EMS reports that the patient's brother told them that he has been "just acting different" for approximately the last x2 days. Patient denies SI. TRAVEL OUTSIDE OF THE [place] IN LAST 30 DAYS: No - Related Data Allergies/Adverse Reactions: No Known Allergies Allergy (Verified 10/30/18 14:13) Past Medical History - General Information source: [facility] Records Cannot obtain history due to: Unstable vital signs - Social History Smoking Status: Unknown if Ever Smoked Frequency of alcohol use: Heavy Lives with: Family Family History: Hypertension - Past Medical History Cardiac Medical History: Reports: Hx Hypertension Pulmonary Medical History: Reports: Hx Bronchitis, Hx Pneumonia Psychiatric Medical History: Reports: Hx Depression - Immunizations Hx Diphtheria, Pertussis, Tetanus Vaccination: No Review of Systems - Review of Systems -: Yes ROS unobtainable due to patient's medical condition Physical Exam - Vital signs Vitals: Pulse Resp BP Pulse Ox 125 H 35 H 141/105 H 92 04/16/19 17:15 04/16/19 17:15 04/16/19 17:15 04/16/19 17:15 Interpretation: Tachycardic, Tachypneic - General In distress: Severe - HEENT Mucous membranes: Dry - Respiratory Respiratory status: Respiratory distress, Labored, Tachypnea Chest status: Accessory muscle use - Cardiovascular Rhythm: Tachycardia - Abdominal Distension: Distended Tenderness: Tender, Guarding, Rebound - Extremities General upper extremity: Normal inspection, Normal ROM General lower extremity: Normal inspection, Normal ROM - Neurological Cognition: Normal Orientation: Disoriented to place, Disoriented to time, Disoriented to events Tara Coma Scale Eye Opening: Spontaneous Doland Coma Scale Verbal: Confused Doland Coma Scale Motor: Obeys Commands Doland Coma Scale Total: 14 - Skin Skin Temperature: Cool Skin Moisture: Dry Course - Re-evaluation Re-evalutation: 04/16/19 20:03 Called placed to [facility] regarding potential transfer, spoke to Dr. Fulton. 04/16/19 22:27 Transport here for patient. He has had very low oxygen saturations in x-ray consistent with ARDS. Patient is an unfortunate 39-year-old male with a history of severe alcohol abuse who presents with abdominal distention, pain, possible vomiting, Hemoccult positive stool and respiratory distress. Patient did not have access initially so right IJ was placed and patient was put on BiPAP for respiratory distress and saturation of 85%. IV fluids were started due to patient's tachycardia 130.. He was awake and talking communicating appropriately and initial blood gas after an hour BiPAP showed pH of 7.31 and normal PCO2. Patient went to CT and began to vomit copious amounts of coffee-ground emesis with blood streaks. He was emergently intubated. After intubation, patient became hypotensive and bradycardic. Atropine and epinephrine were given and fluids were continued. Patient became increasingly bradycardic and hypotensive. Ertapenem was initiate d for elevated lactic and concern for sepsis. Eventually lost pulses. CPR was initiated. Please see code sheet. Patient had multiple rounds of CPR, with bradycardia, PEA, V. fib. He had Rask and remained tachycardic in the 120s to 130s. Blood products were initiated due to possible GI bleed. CT chest abdomen pelvis, head with ascites but no free air or other particularly concerning findings. Patient then began to have oxygen desaturation so fluids and blood products were stopped. Chest x-ray concerning for ARDS. Repeat blood gas with pH of 6.77 PCO2 of 90. Vent settings were changed under direction from track equipment operator who recommended dropping tidal volume, increasing respiratory rate, and making PEEP of 12. Patient was transported by ICU tract due to no air transport because of weather. When he was leaving, oxygen saturations were in the 60s. Tachycardia had improved but patient was still hypotensive on Levophed drip. No further fluids or blood products running due to ARDS. I have had a very forthright discussion with his family members regarding patient's prognosis during the time of his presentation until the time of his transport. They understand that he may not survive transport and he has a very poor prognosis. 04/17/19 21:33 - Vital Signs Vital signs: Temp Pulse Resp BP Pulse Ox 94.9 F L 125 H 15 89/61 L 61 L 04/16/19 22:01 04/16/19 17:15 04/16/19 22:01 04/16/19 22:00 04/16/19 22:01 - Laboratory Result Diagrams: 04/16/19 20:35 04/16/19 17:59 Laboratory results interpreted by me: 04/16/19 04/16/19 04/16/19 17:59 17:59 17:59 WBC 20.0 H RBC 3.94 L MCV 106 H MCH 36.2 H MCHC RDW Plt Count Seg Neuts % (Manual) 91 H Lymphocytes % (Manual) 4 L Abs Neuts (Manual) 18.2 H Abs Monocytes (Manual) PT 19.7 H Carbonic Acid ABG pH ABG pCO2 ABG pO2 ABG HCO3 ABG Total CO2 ABG O2 Saturation VBG HCO3 Sodium 122.3 L Chloride 82 L Carbon Dioxide 17 L Anion Gap 23 H Creatinine 1.98 H Est GFR ( Amer) 46 L Est GFR (Non-Af Amer) 38 L Glucose 68 L POC Glucose Lactic Acid Calcium 7.4 L Total Bilirubin 2.6 H Direct Bilirubin 1.6 H AST 151 H Alkaline Phosphatase 164 H Creatine Kinase CK-MB (CK-2) Total Protein 5.3 L Albumin 2.8 L Urine Protein Urine Ketones Urine Blood Urine Bilirubin Urine Urobilinogen Salicylates Acetaminophen Crossmatch 04/16/19 04/16/19 04/16/19 17:59 17:59 17:59 WBC RBC MCV MCH MCHC RDW Plt Count Seg Neuts % (Manual) Lymphocytes % (Manual) Abs Neuts (Manual) Abs Monocytes (Manual) PT Carbonic Acid ABG pH ABG pCO2 ABG pO2 ABG HCO3 ABG Total CO2 ABG O2 Saturation VBG HCO3 18.8 L Sodium Chloride Carbon Dioxide Anion Gap Creatinine Est GFR ( Amer) Est GFR (Non-Af Amer) Glucose POC Glucose Lactic Acid 6.4 H Calcium Total Bilirubin Direct Bilirubin AST Alkaline Phosphatase Creatine Kinase CK-MB (CK-2) Total Protein Albumin Urine Protein 100 H Urine Ketones TRACE H Urine Blood SMALL H Urine Bilirubin SMALL H Urine Urobilinogen 4.0 H Salicylates Acetaminophen Crossmatch 04/16/19 04/16/19 04/16/19 17:59 17:59 17:59 WBC RBC MCV MCH MCHC RDW Plt Count Seg Neuts % (Manual) Lymphocytes % (Manual) Abs Neuts (Manual) Abs Monocytes (Manual) PT Carbonic Acid ABG pH ABG pCO2 ABG pO2 ABG HCO3 ABG Total CO2 ABG O2 Saturation VBG HCO3 Sodium Chloride Carbon Dioxide Anion Gap Creatinine Est GFR ( Amer) Est GFR (Non-Af Amer) Glucose POC Glucose Lactic Acid Calcium Total Bilirubin Direct Bilirubin AST Alkaline Phosphatase Creatine Kinase 230 H CK-MB (CK-2) 5.40 H Total Protein Albumin Urine Protein Urine Ketones Urine Blood Urine Bilirubin Urine Urobilinogen Salicylates < 1.0 L Acetaminophen < 10 L Crossmatch See Detail 04/16/19 04/16/19 04/16/19 20:17 20:35 20:49 WBC 19.4 H RBC MCV 106 H MCH 33.8 H MCHC 31.9 L RDW 17.2 H Plt Count 137 L Seg Neuts % (Manual) Lymphocytes % (Manual) 9 L Abs Neuts (Manual) 15.7 H Abs Monocytes (Manual) 1.9 H PT Carbonic Acid 2.78 H ABG pH 6.77 L* ABG pCO2 92.4 H* ABG pO2 63.7 L ABG HCO3 13.1 L ABG Total CO2 16.0 L ABG O2 Saturation 65.6 L VBG HCO3 Sodium Chloride Carbon Dioxide Anion Gap Creatinine Est GFR ( Amer) Est GFR (Non-Af Amer) Glucose POC Glucose 126 H Lactic Acid Calcium Total Bilirubin Direct Bilirubin AST Alkaline Phosphatase Creatine Kinase CK-MB (CK-2) Total Protein Albumin Urine Protein Urine Ketones Urine Blood Urine Bilirubin Urine Urobilinogen Salicylates Acetaminophen Crossmatch Procedures - Intubation Orotracheal Airway evaluation: Large tongue, Obese Mallampati Classification: Class 4 Intubation method: Orotracheal Blade size: 4 ETT size: 8.0 ETT secured at: Teeth Breath Sounds after Intubation: Equal Intubation Complications: Vomited, Apparent aspiration Critical Care Note - Critical Care Note Total time excluding time spent on procedures (mins): 240 Discharge - Discharge Clinical Impression: ARDS (adult respiratory distress syndrome), Alcohol abuse, Hypoxia Sepsis Qualifiers: Sepsis type: sepsis due to unspecified organism Sepsis acute organ dysfunction status: with acute organ dysfunction Severe sepsis acute organ dysfunction type: encephalopathy Severe sepsis shock status: with septic shock Qualified Code(s): A41.9 - Sepsis, unspecified organism; R65.21 - Severe sepsis with septic shock; G93.40 - Encephalopathy, unspecified Abdominal pain Qualifiers: Abdominal location: generalized Qualified Code(s): R10.84 - Generalized abdominal pain GI bleed Qualifiers: GI bleed type/associated pathology: unspecified gastrointestinal hemorrhage type Qualified Code(s): K92.2 - Gastrointestinal hemorrhage, unspecified Condition: Critical Disposition: [facility] Scribe Attestation: 04/17/19 21:33 I personally performed the services described in the documentation, reviewed and edited the documentation which was dictated to the scribe in my presence, and it accurately records my words and actions. I personally performed the services described in the documentation, reviewed and edited the documentation which was dictated to the scribe in my presence, and it accurately records my words and actions.
== END 2019-04-16 22:30 | disposition short-term general hospital (02) ==
LOC: ER 17:08
DX: J80 Acute respiratory distress syndrome (principal); F10.10 Alcohol abuse, uncomplicated; R10.84 Generalized abdominal pain; A41.9 Sepsis, unspecified organism; R65.21 Severe sepsis with septic shock; G93.40 Encephalopathy, unspecified; K92.2 Gastrointestinal hemorrhage, unspecified
CPT/HCPCS: 31500; 93005; 99291; 99292; 92950; 96365; 86900; 86901; 36415; 87040; 87086; 82553; 36430; 86850; 82962; 80307 ×3; 82803 ×2; 82550; 85025; 85610; 85730; 87075; 87077; 80053; 81001; 84484; 86920; 83605; 71045; 70450; 71250; 74176; 94660 ×2; 93010; 36600; C1751; P9017; P9016; J0461; J3490; J0171